=== PATIENT | female | born 1970 | race Caucasian/White ===

== ENCOUNTER 2022-12-20 14:13 | Inpatient (IN) | payer OTHER, SELFPAY ==
[2022-12-20] VITALS (16 sets, daily range): BP systolic 115–140; BP diastolic 63–88; PULSE 62–88; RESP 11–20; TEMP 36–37.2; O2SAT 95–100; BMI 24.9
--- NOTE | ~2022-12-20 | CT_ITS ---
EXAMINATION: CT abdomen pelvis w con DATE: 12/20/2022 15:20 INDICATION: Epigastric pain TECHNIQUE: Computed tomography (CT) of the abdomen and pelvis was performed with 100 mL Omnipaque-350 intravenous contrast. Automated exposure control and iterative reconstruction technique were employe d. The dose-length product was 462.48 mGy-cm. COMPARISON: None. FINDINGS: Lower thorax: Scattered sub-6 mm pulmonary nodules. Small subsegmental focus of tree-in-bud opacities in the left lower lobe. Liver: Simple left lobe cyst.. Biliary/Gallbladder: Dilated gallbladder with mild inflammatory change, without sludge or stones 13 m m common bile duct, no obstructing mass or stone. Mild intrahepatic duct dilation. Pancreas: No duct dilation. Pancreatic enlargement. Moderate peripancreatic inflammatory change and f luid. Spleen: Normal. Adrenals:No mass. Kidneys: No hydronephrosis or obstructing calcification. Simple right upper pole cyst. 1.5 cm mildly lobulated 36 Hounsfield unit right midpole mass. Multiple sub-5 mm hypodensities, too small to charac terize but most likely represent cysts. GI tract: Moderate distal esophageal and gastric wall edema No small or large bowel dilation. Normal appendix. Diverticulosis without diverticulitis. Mesentery/Peritoneum: No ascites, mass, or free air. Retroperitoneum: No mass. Pelvis: Pelvic organs are within normal limits. Soft Tissues: Soft tissues and body wall unremarkable. Bones: No acute osseous finding. Sorry, that was close to be a thumbs up IMPRESSION: Acute uncomplicated pancreatitis. Moderate esophagitis/gastritis. Gallbladder hydrops and intra-/extra-axial hepatic bile duct dilation, presumably related to inflamma tion from gastritis. 1.5 cm indeterminate right midpole solid or complicated cystic renal lesion, recommend outpatient MRI or CT without and with contrast for further evaluation. Reviewed, dictated and finalized at location K. IMPRESSION: Acute uncomplicated pancreatitis. Moderate esophagitis/gastritis. Gallbladder hydrops and intra-/extra-axial hepatic bile duct dilation, presumab ly related to inflammation from gastritis. 1.5 cm indeterminate right midpole solid or complicated cystic renal lesion, re commend outpatient MRI or CT without and with contrast for further evaluation.
--- NOTE | ~2022-12-20 | MR_ITS ---
EXAMINATION: MR MRCP wo/w con/w 3D wo ind DATE: 12/21/2022 07:56 INDICATION: Abnormal liver function tests. Pancreatitis. Abdominal pain. TECHNIQUE: Magnetic resonance imaging (MRI) of the abdomen was performed without and with 13 mL Multi Austin intravenous contrast. Sequences included coronal T2-weighted FS FSE, coronal T2-weighted FSE, a xial T1-weighted LAVA, coronal FS FIESTA, axial dual-echo T1-weighted SPGR, coronal lava-FLEX, sagitt al T2-weighted FSE, axial T2-weighted FSE, and axial DWI. Thick-slab T2-weighted FSE images were obta ined for magnetic resonance cholangiopancreatography (MRCP). Maximum intensity projection 3-D reconst ructions of the volumetric data were created by the technologist. Postcontrast sequences included cor onal LAVA-flex and time course of axial T1-weighted LAVA. COMPARISON: CT abdomen and pelvis 12/20/2022 FINDINGS: ABDOMEN MRI: There is diffuse hepatic steatosis. There is a 19 mm cyst in the liver. The spleen is no rmal. The gallbladder is distended and contains gallstones. There is edema in the abdomen centered at the pancreas, consistent with acute interstitial pancreatitis. The pancreas enhances throughout. The adrenal glands and left kidney are normal. There are cysts in right kidney measuring up to 15 mm. Th ere are no dilated loops of bowel. There is a small volume of ascites. ABDOMEN MRCP: The common duct is dilated to 10 mm. There are 2 stones in the common duct with the lar bassam measuring 3 mm . IMPRESSION: 1. Acute interstitial pancreatitis. 2. Small volume of ascites. 3. Mildly dilated common duct with choledocholithiasis. 4. Distended gallbladder with cholelithiasis. 5. Diffuse hepatic steatosis. Reviewed, dictated and finalized at location A.
--- NOTE | ~2022-12-20 | US_ITS ---
EXAMINATION: US transvaginal DATE: 12/21/2022 08:40 INDICATION: Abdominal pain. Left ovarian mass. TECHNIQUE: Multiple transvaginal sonographic images of the pelvis were obtained. COMPARISON: CT abdomen and pelvis 12/20/2022 FINDINGS: The uterus measures 5.2 x 4.4 x 2.9 cm. There is physiologic free fluid in the pelvis. The endometria l complex is normal in thickness, but not well visualized. The ovaries are not visualized. IMPRESSION: 1. Ovaries not visualized. Note that the CT demonstrates a 4.4 x 3.2 cm mass of the left ovary contai jovan fat, consistent with a dermoid. Reviewed, dictated and finalized at location A. IMPRESSION: 1. Ovaries not visualized. Note that the CT demonstrates a 4.4 x 3.2 cm mass of the left ovary containing fat, consistent with a dermoid.
--- NOTE | ~2022-12-20 | XR_ITS ---
EXAMINATION: XR ERCP DATE: 12/23/2022 14:07 INDICATION: Gallstones TECHNIQUE: 4 fluoroscopic images of the right upper quadrant were obtained during endoscopic retrogra de cholangiopancreatography (ERCP) performed by Dr. Pierre. Radiologist was not present for the imagi ng or procedure. The amount of fluoroscopy time used during this procedure was 3.1 minutes. COMPARISON: MRCP dated 12/31/2022 FINDINGS: Images demonstrate endoscopic cannulation and retrograde contrast injection into the common bile duct . The common bile duct appears mildly dilated measuring approximately 9 mm in maximal diameter. No de finitive endoluminal filling defects to suggest choledocholithiasis. There is also contrast extends a long the main pancreatic duct at the head and proximal body the pancreas which measures up to 3 mm in maximal diameter with no endoluminal filling defects. IMPRESSION: 1. Mild dilation of the common bile duct without evident choledocholithiasis. Please refer to the ERC P procedure note for additional details. Reviewed, dictated and finalized at location A. IMPRESSION: 1. Mild dilation of the common bile duct without evident choledocholithiasis. P lease refer to the ERCP procedure note for additional details.
--- NOTE | 2022-12-20 14:12 | ED.ABDPAIN ---
HPI - Abdominal Pain General Chief Complaint: Abdominal Pain Stated Complaint: abd pain Source: patient, family and EMS Mode of arrival: EMS Limitations: clinical condition History of Present Illness HPI narrative: 57 years old white female came from home by ambulance with sudden onset of severe right upper quadrant epigastric pain started within 1 hour prior to arrival to the emergency room. Associated with diaphoresis and intermittent blacking out. Possible history of GERD, depression. Patient does not smoke cigarettes and uses marijuana daily. No alcohol. History of hysterectomy. Review of Systems Review of Systems: All systems reviewed & are unremarkable except as noted in HPI and below Exam Narrative: General appearance: Well-developed, well-nourished Skin: Normal color Head: Normocephalic, nontraumatic Eyes: Clear conjunctiva ENT: Oropharynx normal, ears normal, nose normal Neck: Supple, nontender Chest and respiratory: Airway patent, no respiratory distress, no accessory muscle use Heart: Regular rate/rhythm Abdomen: Severe diffuse tenderness of the epigastric and right upper quadrant area, positive guarding. Quiet bowel sounds Vascular: Normal peripheral pulses, normal capillary refill. Musculoskeletal: Normal range of motion, nontender back Neurologic: Alert and oriented ?3, INJECTION MOLDING SUPERVISOR is normal as tested, no gross motor deficit Course Reevaluation(s) Reevaluation #1: Patient feeling much better after Dilaudid and Zofran IV. Date: 12/20/22 Time: 16:27 Consultations Consultation #1: DR MARIEE Date: 12/20/22 Time: 16:03 Consultation #2: Dr. Brothers Date: 12/20/22 Time: 16:17 Vital Signs Vital signs: Vital Signs Temperature 37.0 C 12/20/22 14:06 Pulse Rate 82 12/20/22 14:06 Respiratory Rate 16 12/20/22 14:06 Blood Pressure 132/76 12/20/22 14:06 Pulse Oximetry 99 12/20/22 14:06 Temperature 37.0 C 12/20/22 14:06 Pulse Rate 78 12/20/22 16:15 Respiratory Rate 16 12/20/22 16:15 Blood Pressure 140/74 12/20/22 16:15 Pulse Oximetry 99 12/20/22 16:15 MDM - Abdominal Pain MDM Narrative Medical decision making narrative: 52 years old white female came to the emergency room by ambulance with severe epigastric and right upper quadrant pain, Physical examination was consistent with severe tenderness epigastric and right upper quadrant, differential diagnosis perforated peptic ulcer disease, pancreatitis, cholecystitis, gastritis. Work-up today showed WBC of 11.0 with left shift, lactic acid 2.7, AST 163, ALT 151, lipase 40,000, bilirubin within normal limits at 0.9. CT scan of the abdomen and pelvis showed acute pancreatitis, moderate esophagitis/gastritis, gallbladder hydrops and intra/extra hepatic bile duct dilatation. Dilated gallbladder with mild inflammatory change, without sludge or stones 13 mm common bile duct, no obstructing mass or stone. Mild intrahepatic ductal dilatation. Acute pancreatitis secondary to gallbladder pathology is my concern. Dr. Mariee was consulted, Dr. Brothers was consulted. Patient to be admitted to med/surgery. Patient received 1 L of normal saline, Dilaudid, Zofran, pantoprazole, Zosyn prior to admission. Differential Diagnosis Differential diagnosis: Likely gastroenteritis, pancreatitis and other (Cholecystitis) Medical Records Attestation: I reviewed the patient's medical records. Lab Data Attestation: I reviewed the patient's lab results. 12/20/22 14:28 12/20/22 14:28 Labs: Lab Results 12/20/22 Range/Units 14:28 WBC 11.0 H (4.5-10.0) K/mm3 RBC 4.71 (4.2-5.4) M/mm3 Hgb 13.9 (12.0-15.0) g/dL Hct 42.6 (37.0-47.0) % [facility]
[2022-12-20] MEDS: PANTOPRAZOLE SODIUM IV 40 MG VIAL IV PUSH (14:32)
[2022-12-20] MEDS: HYDROmorphone HCL INJ (*CRX) 1 MG/ML SYR 0.5 MG IV PUSH ×2 (14:32→18:23)
[2022-12-20] MEDS: SODIUM CHLORIDE 0.9% IV 1,000 ML 999 ML IV CONT (14:34)
[2022-12-20] MEDS: ONDANSETRON INJ 4 MG/2 ML VIAL IV PUSH (14:35)
[2022-12-20 14:37] LABS: Basophils Percent Auto 0.4 % (0.2-1.2); Eosinophils Absolute Auto 0.1 K/mm3 (0-0.3); Eosinophils Percent Auto 0.6 % (0-4.4); Hematocrit 42.6 % (37.0-47.0); Hemoglobin 13.9 g/dL (12.0-15.0); Immature Granulocyte Absolute 0.05 K/mm3 (0.00-0.031); Immature Granulocyte Percent A 0.5 % (0-0.5); Lymphocytes Absolute Auto 2.05 K/mm3 (0.9-3.2); Lymphocytes Percent Auto 18.6 % (18.3-44.2); Mean Corpuscular HGB Conc 32.6 g/dl (32-36); Mean Corpuscular Hemoglobin 29.5 pg (26-34); Mean Corpuscular Volume 90.4 fl (80-100); Mean Platelet Volume 10.6 fl (7.4-10.4); Monocytes Absolute Auto 0.7 K/mm3 (0.1-0.6); Monocytes Percent Auto 6.4 % (2.6-8.5); Neutrophils Absolute Auto 8.1 K/mm3 (1.3-6.7); Neutrophils Percent Auto 73.5 % (45.5-73.1); Platelet Count Result 270 k/mm3 (150-375); Red Blood Count 4.71 M/mm3 (4.2-5.4); Red Cell Distribution Width 12.1 % (11.5-14.5)
[2022-12-20 14:47] LABS: Appearance Urine Clear (Clear); Bacteria Urine None Seen /hpf; Bilirubin Urine Negative (Negative); Blood Urine 1+ (Negative); Color Urine Yellow (Yellow); Glucose Urine UA Negative (Negative); Ketones Urine Negative (Negative); Leukocyte Esterase Ur Negative LEU/UL (Negative); Nitrate Urine Negative (Negative); Non Pathogenic Casts 0-2; Protein Urine Trace mg/dL (Negative); Specific Grav Ur 1.014 (1.001-1.035); Squamous Epithelial Cell Urine None seen /hpf (Few); WBC Urine 0-5 /hpf; pH Urine 7.5 (5.0-9.0)
[2022-12-20 14:49] LABS: Lactic Acid Reflex 2.7 mmol/L (0.7-2.0)
[2022-12-20 14:52] LABS: Add Urine Microscopic? YES
[2022-12-20 15:03] LABS: Alanine Aminotransferase 131 U/L (6-35); Albumin Level 4.4 g/dL (3.5-5.1); Alkaline Phosphatase 104 U/L (38-126); Anion Gap 8 mmol/L (8-16); Aspartate Amino Transferase 163 U/L (14-36); Bilirubin,Total 0.9 mg/dL (0.2-1.3); Blood Urea Nitrogen 25 mg/dL (7-17); Calcium 9.2 mg/dL (8.4-10.2); Carbon Dioxide 27 mmol/L (22-30); Chloride 104 mmol/L (98-107); Estimated CRCL calculation 89 ml/min; Estimated Glomerular Filt Rate > 60; Glucose 141 mg/dL (65-110); Sodium 139 mmol/L (137-145)
[2022-12-20 15:46] LABS: Lipase > 40000 U/L (23-300)
[2022-12-20] MEDS: PIPERACILLN/TAZ 3.375GM/NS50ML 3.375 GM/50 ML BAG IVPB ×2 (16:52→23:30)
[2022-12-20] MEDS: SODIUM CHLORIDE 0.9% IV 1,000 ML 500 ML IV CONT (16:52)
[2022-12-20 17:34] LABS: Reflex Lactic Acid Yes or No Add Lactic
--- NOTE | 2022-12-20 18:07 | ADMGEN ---
This patient, Consuelo Harrington, was admitted to Medical Room 250-. Patient/family oriented to hospital policies and general routines including ID bracelet, bed and alarms, visiting hours, pain management, procedures, bathroom and other care routines, personal items, smoking policy, room service/diet, and visiting hours. Information on how to activate the Rapid Response Team has been discussed. Patient/Family are encouraged to report perceived risks to care and to ask questions if they do not understand what they are told or what they should do.
[2022-12-20] MEDS: LACTATED RINGERS 1,000 ML 250 ML IV CONT ×2 (18:25→23:30)
[2022-12-20 18:34] LABS: Lactic Acid 1.4 mmol/L (0.7-2.0)
--- NOTE | 2022-12-20 20:13 | PM.IMHP ---
H&P: HPI History of Present Illness Date/Time: 12/20/22 20:13 Chief Complaint: Abdominal pain Narrative: This is a 52-year-old female patient who came via ambulance to the emergency room from home. The patient was complaining of severe right upper quadrant epigastric pain. The pain started 1 hour prior to arrival to the emergency room. The patient stated that she has severe pain that she became diaphoretic and had intermittent spells where she passed out. The patient denies any alcohol abuse. The patient stated that she has not had any prior episodes like this. Her white count is 11.0. Her lactic was 2.7 and is now 1.4. Glucose 141. AST is 163 and ALT is 131. AST is 163 and ALT is 131. Lipase is greater than 40,000. The patient had a CT of the abdomen?Dilated gallbladder with mild inflammatory change, without sludge or stones 13 mm common bile duct, no obstructing mass or stone. Mild intrahepatic duct dilation.cute uncomplicated pancreatitis. Moderate esophagitis/gastritis. Gallbladder hydrops and intra-/extra-axial hepatic bile duct dilation, presumably related to inflammation from gastritis. 1.5 cm indeterminate right midpole solid or complicated cystic renal lesion, recommend outpatient MRI or CT without and with contrast for further evaluation. Surgery and GI have been consulted. The patient was given Dilaudid, Protonix, IV fluids, Zosyn, and Toradol. The patient is really around in pain at times to the right upper quadrant. The patient is being admitted to inpatient status on the date of service of 12/20/2022 Review of Systems Review of Systems: All systems reviewed & are unremarkable except as noted in HPI and below Constitutional: Constitutional: Reports as per HPI and Reports no additional constitutional complaints Eyes: Eyes: Reports as per HPI and Reports no additional eye complaints ENT: Reports system reviewed and no additional complaints, except as documented and Reports Normal hearing present Cardiovascular: Cardiovascular: Reports no additional cardiovascular complaints Respiratory: Respiratory: Reports no additional respiratory complaints and Reports no additional respiratory complaints Gastrointestinal: Gastrointestinal: Reports as per HPI and Reports no additional gastrointestinal complaints Musculoskeletal: Musculoskeletal: Reports no additional musculoskeletal complaints Integumentary/Breasts: Skin/Breast: Reports system reviewed and no additional complaints, except as docu and Reports as per HPI Neurologic: Reports system reviewed and no additional complaints, except as documented, Reports as per HPI and Reports Normal hearing present Psychiatric: Psychiatric: Reports no additional psychiatric complaints and Reports as per HPI Endocrine: Endocrine: Reports no additional endocrine complaints Hematologic/Lymphatic: Hematologic/Lymphatic: Reports no additional hematologic/lymphatic complaints Allergic/Immunologic: Allergic/Immunologic: Reports no additional allergic/immunologic complaints [facility] Surgical History Surgical History (Updated 12/20/22 @ 23:03 by Bindu Parrish NP) H/O tubal ligation Family History Family History (Updated 12/20/22 @ 23:04 by Bindu Parrish NP) Other Alcoholism Drug addiction Social History Social History (Updated 12/20/22 @ 23:04 by Bindu Parrish NP) Social History: The patient lives with her and she has 3 daughters and 1 daughter. She is not currently working. She denies alk 0 marijuana illicit drugs. the patient does occasionally smoke a cigarette. Code status full code Years smoked: 15 Smoking status: Current some day smoker Alcohol intake: former Substance use: never Lack of Transportation: No Lack of Food: Never True Current Housing: I Have Housing Concerned About Future Housing: No Difficulty Paying Gas/Electric Bills: No Difficulty Paying for Meds: No Currently Unemployed: No Education: Associate D
[2022-12-20] MEDS: KETOROLAC 15 MG/ML VIAL (*BKC) IV PUSH (21:44)
[2022-12-21] VITALS (7 sets, daily range): BP systolic 108–124; BP diastolic 59–79; PULSE 75–88; RESP 16–20; TEMP 35.7–37.4; O2SAT 99–100
[2022-12-21] MEDS: LACTATED RINGERS 1,000 ML 250 ML IV CONT ×3 (03:36→19:49)
[2022-12-21] MEDS: KETOROLAC 15 MG/ML VIAL (*BKC) IV PUSH ×3 (06:01→20:27)
[2022-12-21] MEDS: PIPERACILLN/TAZ 3.375GM/NS50ML 3.375 GM/50 ML BAG IVPB ×3 (06:01→17:33)
[2022-12-21 06:05] LABS: Basophils Percent Auto 0.2 % (0.2-1.2); Eosinophils Absolute Auto 0.1 K/mm3 (0-0.3); Eosinophils Percent Auto 0.7 % (0-4.4); Hematocrit 36.8 % (37.0-47.0); Hemoglobin 11.9 g/dL (12.0-15.0); Immature Granulocyte Absolute 0.03 K/mm3 (0.00-0.031); Immature Granulocyte Percent A 0.3 % (0-0.5); Lymphocytes Absolute Auto 2.06 K/mm3 (0.9-3.2); Lymphocytes Percent Auto 21.9 % (18.3-44.2); Mean Corpuscular HGB Conc 32.3 g/dl (32-36); Mean Corpuscular Hemoglobin 29.4 pg (26-34); Mean Corpuscular Volume 90.9 fl (80-100); Mean Platelet Volume 10.4 fl (7.4-10.4); Monocytes Absolute Auto 0.6 K/mm3 (0.1-0.6); Monocytes Percent Auto 6.3 % (2.6-8.5); Neutrophils Absolute Auto 6.6 K/mm3 (1.3-6.7); Neutrophils Percent Auto 70.6 % (45.5-73.1); Platelet Count Result 211 k/mm3 (150-375); Red Blood Count 4.05 M/mm3 (4.2-5.4); Red Cell Distribution Width 12.4 % (11.5-14.5); White Blood Count 9.4 K/mm3 (4.5-10.0)
[2022-12-21] MEDS: PANTOPRAZOLE SODIUM IV 40 MG VIAL IV PUSH (08:17)
--- NOTE | 2022-12-21 10:05 | PM.CNGS ---
Assessment and Plan Assessment and plan (1) Biliary acute pancreatitis: Code(s): K85.10 - Biliary acute pancreatitis without necrosis or infection Status: Acute Assessment and Plan: feels a little better today, cont bowel rest, serial exams/labs, will likely need ERCP given CBD stones (2) Cholelithiasis with choledocholithiasis: Code(s): K80.70 - Calculus of gallbladder and bile duct without cholecystitis without obstruction Status: Acute Assessment and Plan: see above, will need interval cholecystectomy in the future History of Present Illness Consult details Consult date: 12/21/22 Reason for consult: abdominal pain Requesting physician: Elliot Schwartz MD Narrative: The patient is a 52-year-old female presenting to the emergency department complaining of severe right upper quadrant, epigastric abdominal pain. The patient reports the pain was severe and unrelenting, causing her to pass out multiple times. The patient does describe some anorexia, bloating, reflux, nausea. The patient reports a past history of reflux and indigestion, however nothing this severe. Workup in the emergency department, including imaging, was significant for pancreatitis. Review of Systems Constitutional: Constitutional: Reports as per HPI, Reports anorexia, Denies chills, Denies fatigue, Denies increased appetite, Denies lethargy, Reports malaise, Reports poor appetite, Denies weakness, Denies weight gain and Denies weight loss Eyes: Eyes: Reports no additional eye complaints ENT: Reports system reviewed and no additional complaints, except as documented Cardiovascular: Cardiovascular: Reports no additional cardiovascular complaints Respiratory: Respiratory: Reports no additional respiratory complaints Gastrointestinal: Gastrointestinal: Reports as per HPI, Reports abdominal pain, Reports bloating, Reports GI cramping, Reports early satiety, Reports heartburn, Denies diarrhea, Denies loose stools, Reports nausea and Denies vomiting Genitourinary: Genitourinary: Reports no additional female genitourinary complaints Musculoskeletal: Musculoskeletal: Reports no additional musculoskeletal complaints Integumentary/Breasts: Skin/Breast: Reports system reviewed and no additional complaints, except as docu Neurologic: Reports system reviewed and no additional complaints, except as documented Psychiatric: Psychiatric: Reports no additional psychiatric complaints Endocrine: Endocrine: Reports no additional endocrine complaints Hematologic/Lymphatic: Hematologic/Lymphatic: Reports no additional hematologic/lymphatic complaints Allergic/Immunologic: Allergic/Immunologic: Reports no additional allergic/immunologic complaints [facility] Surgical History Surgical History H/O tubal ligation Family History Family History Other Alcoholism Drug addiction Social History Social History Social History: The patient lives with her and she has 3 daughters and 1 daughter. She is not currently working. She denies alk 0 marijuana illicit drugs. the patient does occasionally smoke a cigarette. Code status full code Years smoked: 15 Smoking status: Current some day smoker Alcohol intake: former Substance use: never Lack of Transportation: No Lack of Food: Never True Current Housing: I Have Housing Concerned About Future Housing: No Difficulty Paying Gas/Electric Bills: No Difficulty Paying for Meds: No Currently Unemployed: No Education: Associate Degree Difficulty w/ Childcare or Family Care: No Spiritual care concerns: No Comments no medical history Meds Home Medications and Allergies Allergies Allergy/AdvReac Type Severity Reaction Status Date / Time No Known Allergies Allergy Verified 12/20/22 16:32 Vital S
--- NOTE | 2022-12-21 10:08 | WPDGICN ---
Assessment and Plan Assessment and plan (1) Cholelithiasis with choledocholithiasis: Code(s): K80.70 - Calculus of gallbladder and bile duct without cholecystitis without obstruction Status: Acute Assessment and Plan: Patient with apparent gallstones and choledocholithiasis by MRCP. This appears be the etiology for acute pancreatitis. Plan for bowel rest patient should be NPO for now. Pain control is advised. An ERCP will be anticipated early next week after pancreatitis has subsided some. surgery will follow along with us because of apparent hydrops of gallbladder. This may necessitate surgery depending on how this changes. Otherwise surgery typically would be performed after ERCP is accomplished. (2) Acute pancreatitis: Qualifiers: Acute pancreatitis complication: unspecified Pancreatitis type: unspecified pancreatitis type Qualified Code(s): K85.90 - Acute pancreatitis without necrosis or infection, unspecified Code(s): K85.90 - Acute pancreatitis without necrosis or infection, unspecified Status: Acute Assessment and Plan: Patient with apparent acute pancreatitis. Appears to be on the bed at basis of gallstones. Plan for supportive care in p.o. and pain control for now. GI Consult Note Consult date/time: 12/21/22 10:08 Reason for consult: Pancreatitis HPI: Consuelo Harrington is a 52 year old female I am asked to see at the request of the hospitalist service because of pancreatitis. Patient reports a longstanding history of heartburn and acid indigestion. She typically gets resolution with [id number] antacids. Yesterday about noon she awoke with mid epigastric pain that is diffuse large amount of pressure. Associated nausea but no emesis. She denies any back pain. This persisted prompting her to go to the emergency room. In the emergency room CT scan imaging revealed pancreatitis and possible associated gastritis. patient was felt to have a distended gallbladder consistent with gallbladder hydrops. For this reason I have been consulted. Subsequent MRCP suggested possible common bile duct gallstones as well as cholelithiasis. Patient has never previously known to have gallstones. Her family history is noncontributory. Patient denies any weight loss. She denies any jaundice. She states symptoms appear to worsen after eating a meal. Review of Systems Review of Systems: Review of systems noncontributory. [facility] Surgical History Surgical History H/O tubal ligation Family History Family History Other Alcoholism Drug addiction Social History Social History Social History: The patient lives with her and she has 3 daughters and 1 daughter. She is not currently working. She denies alk 0 marijuana illicit drugs. the patient does occasionally smoke a cigarette. Code status full code Years smoked: 15 Smoking status: Current some day smoker Alcohol intake: former Substance use: never Lack of Transportation: No Lack of Food: Never True Current Housing: I Have Housing Concerned About Future Housing: No Difficulty Paying Gas/Electric Bills: No Difficulty Paying for Meds: No Currently Unemployed: No Education: Associate Degree Difficulty w/ Childcare or Family Care: No Spiritual care concerns: No Meds Home Medications and Allergies Allergies Allergy/AdvReac Type Severity Reaction Status Date / Time No Known Allergies Allergy Verified 12/20/22 16:32 Vital Signs Vital Signs - 24 hr 12/20/22 14:06 12/20/22 16:15 12/20/22 14:38 Temperature 98.6 F Pulse Rate 82 78 66 Respiratory Rate 16 16 11 L Blood Pressure 132/76 140/74 Pulse Oximetry 99 99 97 Oxygen Delivery Fraction of Inspired Oxygen 12/20/22 14:45 12/20/22 1
[2022-12-21 11:19] LABS: Anion Gap 2 mmol/L (8-16); Blood Urea Nitrogen 19 mg/dL (7-17); Calcium 8.2 mg/dL (8.4-10.2); Carbon Dioxide 26 mmol/L (22-30); Chloride 104 mmol/L (98-107); Estimated CRCL calculation 105 ml/min; Estimated Glomerular Filt Rate > 60; Glucose 90 mg/dL (65-110); Magnesium 1.7 mg/dL (1.6-2.3); Potassium 3.9 mmol/L (3.4-5.0); Sodium 132 mmol/L (137-145)
[2022-12-21 11:46] LABS: Lipase 7012 U/L (23-300)
--- NOTE | 2022-12-21 13:11 | PM.IMPN ---
Progress Note: A&P Assessment and Plan (1) Biliary acute pancreatitis: Qualifiers: Acute pancreatitis complication: unspecified Qualified Code(s): K85.10 - Biliary acute pancreatitis without necrosis or infection Code(s): K85.10 - Biliary acute pancreatitis without necrosis or infection Status: Acute Assessment and Plan: Initial lipase >40,000. After fluids and bowel rest lipase just over 7000. Continue IV pain medications (ketorolac and Dilaudid), continue NPO status overnight allowing a few ice chips/mouth swabs, continue IV hydration. Plan to advance diet as tolerated tomorrow. (2) Cholelithiasis with choledocholithiasis: Code(s): K80.70 - Calculus of gallbladder and bile duct without cholecystitis without obstruction Status: Acute Assessment and Plan: MRCP shows 2 gallstones obstructing common bile duct. GI plans to do ERCP after initial inflammation improved. Patient will likely need cholecystectomy in follow up to prevent recurrence as stones are noted in gallbladder as well. (3) Dermoid cyst of left ovary: Code(s): D27.1 - Benign neoplasm of left ovary Status: Acute Assessment and Plan: Incidental finding of dermoid cyst on left ovary on CT and further evaluated on transvaginal ultrasound. No pain at this time. No abnormal vaginal bleeding. Plan Bowel rest, IV fluids, pain control, ADAT in 1-2 days, ERCP Time Spent With Patient Time with patient: 25 - 35 minutes Subjective Date/time seen: 12/21/22 10:00 Interval history: Patient admitted for acute pancreatitis, currently NPO with IV fluids infusing. General Surgery and Gastroenterology have seen patient. Patient to undergo MRCP today. 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 Patient reports that when she woke up yesterday had sudden mid upper abdominal worse when taking a deep breath or eating. Eventually the pain was bad enough to send her to the emergency department. Patient reports chronic abdominal pain but this was new and worse she has ever experienced. Patient reports good pain relief with ketorolac, less pain relief when given Dilaudid. Patient denies alcohol use, denies history of pancreatitis, denies history of diabetes. Patient states no shortness of breath, no chest pain, no vomiting, no fever, no chills, no diarrhea. She reports she had some initial nausea but was unable to make herself vomit. Review of Systems Review of Systems: All systems reviewed & are unremarkable except as noted in HPI and below Exam Narrative: GENERAL: Generally well appearing, alert and oriented, in mild pain distress. She is pleasant and conversant in full sentences. HEENT: Pupils are equally round and briskly reactive to light. Extraocular muscles are intact. Oral mucous membranes are moist without lesions. NECK: The patient has no noted JVD. No adenopathy is appreciated. CHEST/LUNGS: Lungs are clear bilaterally without rhonchi, rales, or wheezes. There is no subcutaneous air appreciated. There is no tenderness to the chest wall. HEART: The patient has a regular rate and rhythm. No murmurs, rubs, or gallops are appreciated. Distal pulses are 2+. ABDOMEN: The patient?s abdomen is soft, nondistended. There is epigastric tenderness to palpation with mild guarding. No other tenderness noted. Specifically no left lower quadrant tenderness. EXTREMITIES: The patient has no peripheral edema. There is no focal long bone tenderness or deformity. SKIN: The patient?s skin is warm and dry, without rashes or lesions. PSYCHIATRIC: The patient has normal mental status and has an appropriate affect. NEUROLOGIC: There are no gross deficits to the cranial nerves. Patient ambulates with steady gait. Objective Data Vital Signs Vital Signs: Vital Signs - 24 hr 12/20/22 14:06 12/20/22 16:15 12/20/22 14:38 Temperature 37.0 C Pulse Rate 82 78 66 Respiratory Rate 16 16 11
[2022-12-22] VITALS (7 sets, daily range): BP systolic 106–123; BP diastolic 57–81; PULSE 71–82; RESP 17–18; TEMP 36.4–36.6; O2SAT 97–100
[2022-12-22] MEDS: PIPERACILLN/TAZ 3.375GM/NS50ML 3.375 GM/50 ML BAG IVPB ×4 (00:57→18:18)
[2022-12-22] MEDS: LACTATED RINGERS 1,000 ML 250 ML IV CONT ×5 (01:13→22:44)
[2022-12-22 05:11] LABS: Basophils Percent Auto 0.3 % (0.2-1.2); Eosinophils Absolute Auto 0.1 K/mm3 (0-0.3); Eosinophils Percent Auto 2.1 % (0-4.4); Hematocrit 33.1 % (37.0-47.0); Hemoglobin 10.7 g/dL (12.0-15.0); Immature Granulocyte Absolute 0.02 K/mm3 (0.00-0.031); Immature Granulocyte Percent A 0.3 % (0-0.5); Lymphocytes Absolute Auto 2.04 K/mm3 (0.9-3.2); Lymphocytes Percent Auto 30.2 % (18.3-44.2); Mean Corpuscular HGB Conc 32.3 g/dl (32-36); Mean Corpuscular Hemoglobin 29.2 pg (26-34); Mean Corpuscular Volume 90.2 fl (80-100); Mean Platelet Volume 10.3 fl (7.4-10.4); Monocytes Absolute Auto 0.5 K/mm3 (0.1-0.6); Neutrophils Absolute Auto 4.1 K/mm3 (1.3-6.7); Neutrophils Percent Auto 60.1 % (45.5-73.1); Platelet Count Result 174 k/mm3 (150-375); Red Blood Count 3.67 M/mm3 (4.2-5.4); Red Cell Distribution Width 11.9 % (11.5-14.5); White Blood Count 6.8 K/mm3 (4.5-10.0)
[2022-12-22 05:26] LABS: Alanine Aminotransferase 55 U/L (6-35); Alkaline Phosphatase 74 U/L (38-126); Anion Gap 3 mmol/L (8-16); Aspartate Amino Transferase 28 U/L (14-36); Bilirubin,Total 0.5 mg/dL (0.2-1.3); Blood Urea Nitrogen 15 mg/dL (7-17); Calcium 8.1 mg/dL (8.4-10.2); Carbon Dioxide 28 mmol/L (22-30); Chloride 105 mmol/L (98-107); Estimated CRCL calculation 89 ml/min; Estimated Glomerular Filt Rate > 60; Glucose 72 mg/dL (65-110); Potassium 3.7 mmol/L (3.4-5.0); Sodium 136 mmol/L (137-145)
[2022-12-22 05:32] LABS: Lipase 1918 U/L (23-300)
[2022-12-22] MEDS: PANTOPRAZOLE SODIUM IV 40 MG VIAL IV PUSH (08:04)
--- NOTE | 2022-12-22 08:55 | WPDGIPROGNO ---
Progress Note: A&P Assessment and Plan (1) Acute pancreatitis: Qualifiers: Acute pancreatitis complication: unspecified Pancreatitis type: unspecified pancreatitis type Qualified Code(s): K85.90 - Acute pancreatitis without necrosis or infection, unspecified Code(s): K85.90 - Acute pancreatitis without necrosis or infection, unspecified Status: Acute Assessment and Plan: patient with gallstone pancreatitis. Lipase is decreasing but remains elevated. Plan to continue supportive care. Keep patient NPO for now. IV fluid and bowel rest. Anticipate ERCP tomorrow given the finding of gallstones and suspected common bile duct gallstones on imaging studies. (2) Cholelithiasis with choledocholithiasis: Code(s): K80.70 - Calculus of gallbladder and bile duct without cholecystitis without obstruction Status: Acute Assessment and Plan: MRCP suggests common bile duct gallstones in addition to cholelithiasis. This appears be the etiology for pancreatitis. Plan for ERCP on Thursday. Ultimately she will require cholecystectomy. Surgery following patient. Subjective Date/time seen: 12/22/22 08:55 Interval history: Patient alert and comfortable this morning. She states pain is subsided. Review of Systems Review of Systems: Review of systems noncontributory. Exam Narrative: Physical exam reveals patient be alert. She is afebrile and anicteric. Lungs are clear to auscultation and percussion. Heart is without murmur or extra sounds. Abdomen bowel sounds are present soft nontender with no organomegaly. Objective Data Vital Signs Vital Signs: Vital Signs - 24 hr 12/21/22 10:20 12/21/22 13:40 12/21/22 18:00 Temperature 97.7 F 96.3 F L 96.7 F L Pulse Rate 80 75 80 Respiratory Rate 16 20 16 Blood Pressure 114/67 120/76 124/79 Pulse Oximetry 100 100 99 Oxygen Delivery 12/21/22 19:21 12/21/22 20:00 12/21/22 23:35 Temperature 98.4 F 99.4 F Pulse Rate 75 76 84 Respiratory Rate 16 18 16 Blood Pressure 109/77 111/73 Pulse Oximetry 100 99 100 Oxygen Delivery Room Air 12/22/22 04:00 12/22/22 08:21 Temperature 97.7 F Pulse Rate 82 Respiratory Rate 18 Blood Pressure 119/62 Pulse Oximetry 98 98 Oxygen Delivery Room Air Intake/Output Intake/Output: Intake & Output 12/19/22 12/20/22 12/21/22 12/22/22 23:59 23:59 23:59 23:59 Intake Total 1000 4200 1050 Balance 1000 4200 1050 Meds/Results Medications: Active Medications Generic Name Dose Route Start Last Admin Trade Name Freq PRN Reason Stop Dose Admin Hydromorphone HCl 0.5 mg 12/20/22 16:18 12/20/22 18:23 Hydromorphone Hcl Inj (*Crx) 1 Mg/Ml Syr IV PUSH 0.5 mg Q4H PRN Administration Pain Rated 7-10 Piperacillin/Tazobactam/Dextrose 3.375 gm in 50 mls @ 100 mls/hr 12/20/22 23:00 12/22/22 06:06 Zosyn 3.375 Gm/Ns 50 Ml IVPB 100 mls/hr Q6HR GIOVANY Administration Lactated Ringer's 1,000 mls @ 250 mls/hr 12/20/22 16:20 12/22/22 06:05 Lr - Lactated Ringers Iv IV CONT 250 mls/hr .Q4H GIOVANY Administration Ketorolac Tromethamine 15 mg 12/21/22 14:46 12/21/22 20:27 Ketorolac 15 Mg/Ml Vial (*Bkc) IV PUSH 15 mg Q6H PRN Administration Pain Rated 4-6 Ondansetron HCl 4 mg 12/20/22 16:18 Ondansetron Inj 4 Mg/2 Ml Vial IV PUSH Q4H PRN Nausea Pantoprazole Sodium 40 mg 12/21/22 09:00 12/22/22 08:04 Pantoprazole Sodium Iv 40 Mg Vial IV PUSH 40 mg QAM GIOVANY Administration Radiology Results: ITS Impressions Abdomen/Pelvis CT 12/20/22 15:30 IMPRESSION: Acute uncomplicated pancreatitis. Moderate esophagitis/gastritis. Gallbladder hydrops and intra-/extra-axial hepatic bile duct dilation, presumably related to inflammation from gastritis. 1.5 cm indeterminate right midpole solid or complicated cystic renal lesion, recommend outpatient MRI or CT without and with contrast for further evaluation.
--- NOTE | 2022-12-22 09:02 | PM.IMPN ---
Progress Note: A&P Assessment and Plan (1) Biliary acute pancreatitis: Qualifiers: Acute pancreatitis complication: unspecified Qualified Code(s): K85.10 - Biliary acute pancreatitis without necrosis or infection Code(s): K85.10 - Biliary acute pancreatitis without necrosis or infection Status: Acute Assessment and Plan: Lipase improving with IV fluids and bowel rest. Patient unable to handle hunger pains in remain completely on bowel rest so she is taking small amounts of liquid diet. NPO after midnight plan for ERCP by GI Tomorrow. Possibly followed by cholecystectomy in a day or two with General surgery. (2) Cholelithiasis with choledocholithiasis: Code(s): K80.70 - Calculus of gallbladder and bile duct without cholecystitis without obstruction Status: Acute Assessment and Plan: See above (3) Dermoid cyst of left ovary: Code(s): D27.1 - Benign neoplasm of left ovary Status: Acute Assessment and Plan: Stable, no pain. Will have patient follow with TECHNICAL SUPPORT REPRESENTATIVE on discharge. (4) Hepatic steatosis: Code(s): K76.0 - Fatty (change of) liver, not elsewhere classified Status: Acute Assessment and Plan: Mild ALT elevation, normal AST and normal alk phos. Stable. Primary care follow up on discharge. Plan Continue IV fluids Pain management as needed NPO after midnight Either discharge after ERCP if patient to receive cholecystectomy as an outpatient or proceed with cholecystectomy then discharge Time Spent With Patient Time with patient: 25 - 35 minutes Subjective Date/time seen: 12/22/22 09:02 Interval history: This is a 52-year-old female patient admitted to the hospital for acute pancreatitis with findings of obstructing biliary stones plans for ERCP tomorrow. Lipase initially over 40,000 but this morning was just under 2000. Patient reports upper abdominal pain significantly improved, she only complains of generalized discomfort remaining in bed so long. Patient states that she is a busy body and just cannot stand being stuck in this bed. Patient also complaining of severe hunger pains. We discussed that gastroenterology would prefer patient continue bowel rest the patient stated she could not handle the hunger pains. Review of Systems Review of Systems: All systems reviewed & are unremarkable except as noted in HPI and below Exam Narrative: GENERAL: Generally well appearing, alert and oriented. She is pleasant and conversant in full sentences. HEENT: Pupils are equally round and briskly reactive to light. Extraocular muscles are intact. Oral mucous membranes are moist without lesions. NECK: The patient has no noted JVD. No adenopathy is appreciated. CHEST/LUNGS: Lungs are clear bilaterally without rhonchi, rales, or wheezes. There is no subcutaneous air appreciated. There is no tenderness to the chest wall. HEART: The patient has a regular rate and rhythm. No murmurs, rubs, or gallops are appreciated. Distal pulses are 2+. ABDOMEN: The patient?s abdomen is?soft, nondistended. There is no abdominal tenderness to palpation even epigastric or right upper quadrant. EXTREMITIES: The patient has no peripheral edema. There is no focal long bone tenderness or deformity. SKIN: The patient?s skin is warm and dry, without rashes or lesions. PSYCHIATRIC: The patient has normal mental status and has an appropriate affect. NEUROLOGIC:? There are no gross deficits to the cranial nerves.? Patient ambulates with steady gait. Objective Data Vital Signs Vital Signs: Vital Signs - 24 hr 12/21/22 10:20 12/21/22 13:40 12/21/22 18:00 Temperature 36.5 C 35.7 C L 35.9 C L Pulse Rate 80 75 80 Respiratory Rate 16 20 16 Blood Pressure 114/67 120/76 124/79 Pulse Oximetry 100 100 99 Oxygen Delivery 12/21/22 19:21 12/21/22 20:00 12/21/22 23:35 Temperature 36.9 C 37.4 C Pulse Rate 75 76 84 Respiratory Rate 16 18 16 Blood Pressure 109/77
--- NOTE | 2022-12-22 14:25 | PM.PNGS ---
Progress Note: A&P Assessment and Plan (1) Biliary acute pancreatitis: Qualifiers: Acute pancreatitis complication: unspecified Qualified Code(s): K85.10 - Biliary acute pancreatitis without necrosis or infection Code(s): K85.10 - Biliary acute pancreatitis without necrosis or infection Status: Acute Assessment and Plan: improving, exam largely benign, cont bowel rest, supportive mgmt, ERCP tomorrow (2) Cholelithiasis with choledocholithiasis: Code(s): K80.70 - Calculus of gallbladder and bile duct without cholecystitis without obstruction Status: Acute Assessment and Plan: ERCP tomorrow, d/w pt need for interval cholecystectomy Subjective Subjective Date/Time Seen: 12/22/22 14:25 Interval history: feels better, pain nearly resolved, hungry Review of Systems Review of Systems: All systems reviewed & are unremarkable except as noted in HPI and below Exam Const: General: cooperative, comfortable and no acute distress Resp: Auscultation: clear to auscultation bilaterally Cardio: Rate: regular rate Rhythm: regular rhythm GI: Inspection: normal to inspection and non-distended GI Palp: Yes abdominal tenderness, Yes Soft to palpation, Yes Tenderness to palpation present (GI), No Guarding due to palpation present (GI) and No Rigid due to palpation Other: mild TTP epigastrium Objective Data Vital Signs Vital Signs: Vital Signs - 24 hr 12/21/22 18:00 12/21/22 19:21 12/21/22 20:00 Temperature 35.9 C L 36.9 C Pulse Rate 80 75 76 Respiratory Rate 16 16 18 Blood Pressure 124/79 109/77 Pulse Oximetry 99 100 99 Oxygen Delivery Room Air 12/21/22 23:35 12/22/22 04:00 12/22/22 08:21 Temperature 37.4 C 36.5 C Pulse Rate 84 82 Respiratory Rate 16 18 Blood Pressure 111/73 119/62 Pulse Oximetry 100 98 98 Oxygen Delivery Room Air 12/22/22 08:00 12/22/22 08:00 12/22/22 12:00 Temperature 36.4 C 36.4 C Pulse Rate 80 82 Respiratory Rate 18 18 17 Blood Pressure 120/64 118/66 Pulse Oximetry 98 97 Oxygen Delivery Room Air Intake/Output Intake/Output: Intake & Output 12/19/22 12/20/22 12/21/22 12/22/22 23:59 23:59 23:59 23:59 Intake Total 1000 4200 2430 Balance 1000 4200 2430 Meds/Results Medications: Active Medications Generic Name Dose Route Start Last Admin Trade Name Freq PRN Reason Stop Dose Admin Hydromorphone HCl 0.5 mg 12/20/22 16:18 12/20/22 18:23 Hydromorphone Hcl Inj (*Crx) 1 Mg/Ml Syr IV PUSH 0.5 mg Q4H PRN Administration Pain Rated 7-10 Piperacillin/Tazobactam/Dextrose 3.375 gm in 50 mls @ 100 mls/hr 12/20/22 23:00 12/22/22 12:28 Zosyn 3.375 Gm/Ns 50 Ml IVPB 100 mls/hr Q6HR GIOVANY Administration Lactated Ringer's 1,000 mls @ 250 mls/hr 12/20/22 16:20 12/22/22 12:31 Lr - Lactated Ringers Iv IV CONT Infused .Q4H GIOVANY Infusion Ketorolac Tromethamine 15 mg 12/21/22 14:46 12/21/22 20:27 Ketorolac 15 Mg/Ml Vial (*Bkc) IV PUSH 15 mg Q6H PRN Administration Pain Rated 4-6 Ondansetron HCl 4 mg 12/20/22 16:18 Ondansetron Inj 4 Mg/2 Ml Vial IV PUSH Q4H PRN Nausea Pantoprazole Sodium 40 mg 12/21/22 09:00 12/22/22 08:04 Pantoprazole Sodium Iv 40 Mg Vial IV PUSH 40 mg QAM GIOVANY Administration Radiology Results: ITS Impressions Abdomen/Pelvis CT 12/20/22 15:30 IMPRESSION: Acute uncomplicated pancreatitis. Moderate esophagitis/gastritis. Gallbladder hydrops and intra-/extra-axial hepatic bile duct dilation, presumably related to inflammation from gastritis. 1.5 cm indeterminate right midpole solid or complicated cystic renal lesion, recommend outpatient MRI or CT without and with contrast for further evaluation. ADDENDUM: 12/20/22 2206 There is a 4.7 x 3.0 cm mixed density lesion in the left lower quadrant with fat and small solid elements, likely originating from the left ovary and likely representing a small mature teratom
[2022-12-22] MEDS: KETOROLAC 15 MG/ML VIAL (*BKC) IV PUSH (18:27)
[2022-12-22] MEDS: HYDROmorphone HCL INJ (*CRX) 1 MG/ML SYR 0.5 MG IV PUSH (23:14)
[2022-12-23] VITALS (12 sets, daily range): BP systolic 97–147; BP diastolic 62–86; PULSE 53–71; RESP 12–25; TEMP 35.8–36.8; O2SAT 96–100
[2022-12-23] MEDS: PIPERACILLN/TAZ 3.375GM/NS50ML 3.375 GM/50 ML BAG IVPB ×3 (00:01→17:14)
[2022-12-23 01:13] LABS: Glucose Point of Care 138 mg/dl (65-105)
[2022-12-23] MEDS: LACTATED RINGERS 1,000 ML 250 ML IV CONT ×2 (04:25→08:51)
[2022-12-23 05:41] LABS: Basophils Percent Auto 0.6 % (0.2-1.2); Eosinophils Absolute Auto 0.2 K/mm3 (0-0.3); Eosinophils Percent Auto 3.4 % (0-4.4); Hematocrit 32.5 % (37.0-47.0); Hemoglobin 10.6 g/dL (12.0-15.0); Immature Granulocyte Absolute 0.01 K/mm3 (0.00-0.031); Immature Granulocyte Percent A 0.2 % (0-0.5); Lymphocytes Absolute Auto 2.13 K/mm3 (0.9-3.2); Lymphocytes Percent Auto 39.7 % (18.3-44.2); Mean Corpuscular HGB Conc 32.6 g/dl (32-36); Mean Corpuscular Hemoglobin 29.5 pg (26-34); Mean Corpuscular Volume 90.5 fl (80-100); Mean Platelet Volume 10.7 fl (7.4-10.4); Monocytes Absolute Auto 0.5 K/mm3 (0.1-0.6); Monocytes Percent Auto 9.7 % (2.6-8.5); Neutrophils Absolute Auto 2.5 K/mm3 (1.3-6.7); Neutrophils Percent Auto 46.4 % (45.5-73.1); Platelet Count Result 184 k/mm3 (150-375); Red Blood Count 3.59 M/mm3 (4.2-5.4); Red Cell Distribution Width 11.9 % (11.5-14.5); White Blood Count 5.4 K/mm3 (4.5-10.0)
[2022-12-23 05:59] LABS: Alanine Aminotransferase 45 U/L (6-35); Albumin Level 3.1 g/dL (3.5-5.1); Alkaline Phosphatase 76 U/L (38-126); Anion Gap 1 mmol/L (8-16); Aspartate Amino Transferase 25 U/L (14-36); Bilirubin,Total 0.3 mg/dL (0.2-1.3); Blood Urea Nitrogen 11 mg/dL (7-17); Calcium 8.1 mg/dL (8.4-10.2); Carbon Dioxide 30 mmol/L (22-30); Chloride 107 mmol/L (98-107); Estimated CRCL calculation 89 ml/min; Estimated Glomerular Filt Rate > 60; Glucose 110 mg/dL (65-110); Lipase 745 U/L (23-300); Potassium 3.4 mmol/L (3.4-5.0); Sodium 138 mmol/L (137-145)
--- NOTE | 2022-12-23 06:11 | PC.NURSE ---
informed from GI lab that pt procedure to be done close to 1300 today
--- NOTE | 2022-12-23 08:42 | PM.PNGS ---
Progress Note: A&P Assessment and Plan (1) Cholelithiasis with choledocholithiasis: Code(s): K80.70 - Calculus of gallbladder and bile duct without cholecystitis without obstruction Status: Acute Assessment and Plan: Patient is doing well this morning. She is set to get an ERCP performed by Dr. Pierre today. Will follow-up on the results then we will discuss with the patient whether to proceed with a interval laparoscopic cholecystectomy during this hospitalization or discharge and bring her back as an outpatient for the surgery. Subjective Subjective Date/Time Seen: 12/23/22 08:42 Interval history: Patient feels well today. Minimal epigastric pain. She is NPO for ERCP today. LFTs are normal. Lipase has decreased to about 700. No fevers or chills vital signs are stable Review of Systems Review of Systems: The remainder of the review of systems to include constitutional, HEENT, cardiovascular, respiratory, GI, , integumentary, musculoskeletal, endocrine, immunologic, hematologic, psychiatric, and neurologic are all negative except for which is mentioned above in the HPI. Exam Const: General: comfortable and no acute distress Eyes: General: appearance normal, both eyes and all related structures Sclera: sclerae normal Pupils: Equal, round and reactive pupils present Neck: Neck: supple and no JVD Resp: Effort & Inspection: normal respiratory effort Auscultation: clear to auscultation bilaterally Cardio: Rate: regular rate Rhythm: regular rhythm GI: Other: Abdomen is soft and nondistended. Minimal tenderness to deep palpation in the epigastric region of the abdomen. No tenderness to palpation the right upper quadrant the abdomen with the gallbladder. Neuro: Speech: normal speech Motor exam (neuro): 5/5 motor strength present throughout Sensory Exam: normal sensation Extrem: General: normal to inspection Psych: Mental Status: mental status grossly normal Affect: normal affect Objective Data Vital Signs Vital Signs: Vital Signs - 24 hr 12/22/22 12:00 12/22/22 16:00 12/22/22 19:58 Temperature 36.4 C 36.6 C 36.6 C Pulse Rate 82 71 76 Respiratory Rate 17 18 17 Blood Pressure 118/66 123/81 106/57 L Pulse Oximetry 97 100 99 Oxygen Delivery 12/22/22 20:00 12/23/22 00:00 12/23/22 04:00 Temperature 36.3 C L 35.8 C L Pulse Rate 76 71 67 Respiratory Rate 17 17 17 Blood Pressure 131/77 134/76 Pulse Oximetry 99 96 100 Oxygen Delivery Room Air Intake/Output Intake/Output: Intake & Output 12/20/22 12/21/22 12/22/22 12/23/22 23:59 23:59 23:59 23:59 Intake Total 1000 4200 4920 1300 Balance 1000 4200 4920 1300 Meds/Results Medications: Active Medications Generic Name Dose Route Start Last Admin Trade Name Freq PRN Reason Stop Dose Admin Hydromorphone HCl 0.5 mg 12/20/22 16:18 12/22/22 23:14 Hydromorphone Hcl Inj (*Crx) 1 Mg/Ml Syr IV PUSH 0.5 mg Q4H PRN Administration Pain Rated 7-10 Piperacillin/Tazobactam/Dextrose 3.375 gm in 50 mls @ 100 mls/hr 12/20/22 23:00 12/23/22 05:38 Zosyn 3.375 Gm/Ns 50 Ml IVPB Infused Q6HR GIOVANY Infusion Lactated Ringer's 1,000 mls @ 250 mls/hr 12/20/22 16:20 12/23/22 04:25 Lr - Lactated Ringers Iv IV CONT 250 mls/hr .Q4H GIOVANY Administration Ketorolac Tromethamine 15 mg 12/21/22 14:46 12/22/22 18:27 Ketorolac 15 Mg/Ml Vial (*Bkc) IV PUSH 15 mg Q6H PRN Administration Pain Rated 4-6 Ondansetron HCl 4 mg 12/20/22 16:18 Ondansetron Inj 4 Mg/2 Ml Vial IV PUSH Q4H PRN Nausea Pantoprazole Sodium 40 mg 12/21/22 09:00 12/22/22 08:04 Pantoprazole Sodium Iv 40 Mg Vial IV PUSH 40 mg QAM GIOVANY Administration Radiology Results: ITS Impressions Abdomen/Pelvis CT 12/20/22 15:30 IMPRESSION: Acute uncomplicated pancreatitis. Moderate esophagitis/gastritis. Gallbladder hydrops and intra-/extra-axial hepatic bile duct dilation, pr
[2022-12-23] MEDS: PANTOPRAZOLE SODIUM IV 40 MG VIAL IV PUSH (08:53)
--- NOTE | 2022-12-23 11:49 | PC.NURSE ---
Pt went down to get an ERCP done at 1145.
[2022-12-23] MEDS: LACTATED RINGERS 1,000 ML 150 ML IV CONT (12:01)
--- NOTE | 2022-12-23 12:12 | WPDANESEPPF ---
Anes - Initial Pre Proc Eval Procedure: Operation Date: 12/23/22 13:00 Proposed Procedures p Endoscopic Retro Cholangiopancreatogram - Rajinder Pierre MD Date/Time: 12/23/22 12:12 Surgeon: Tito Schwartz MD Pre Op Diagnosis: acute pancreatitis,acute cholecysitits-suspected Patient Data Age: 52 Gender: F Height: 1.68 m Weight: 70 kg Last Vital Signs Temp 36.3 C L 12/23/22 11:58 Pulse 67 12/23/22 11:58 Resp 18 12/23/22 11:58 BP 147/83 H 12/23/22 11:58 Pulse Ox 100 12/23/22 11:58 O2 Del Method Room Air 12/23/22 11:58 FiO2 21 12/20/22 21:00 Allergies Allergy/AdvReac Type Severity Reaction Status Date / Time No Known Allergies Allergy Verified 12/23/22 11:58 Laboratory Tests 12/23/22 12/23/22 01:11 05:21 WBC 5.4 K/mm3 (4.5-10.0) RBC 3.59 L M/mm3 (4.2-5.4) Hgb 10.6 L g/dL (12.0-15.0) Hct 32.5 L % (37.0-47.0) MCV 90.5 fl (80-100) MCH 29.5 pg (26-34) MCHC 32.6 g/dl (32-36) RDW 11.9 % (11.5-14.5) Plt Count 184 k/mm3 (150-375) MPV 10.7 H fl (7.4-10.4) Immature Gran % (Auto) 0.2 % (0-0.5) Neut % (Auto) 46.4 % (45.5-73.1) Lymph % (Auto) 39.7 % (18.3-44.2) [place] % (Auto) 9.7 H % (2.6-8.5) Eos % (Auto) 3.4 % (0-4.4) Baso % (Auto) 0.6 % (0.2-1.2) Lymph # (Auto) 2.13 K/mm3 (0.9-3.2) [place] # (Auto) 0.5 K/mm3 (0.1-0.6) Eos # (Auto) 0.2 K/mm3 (0-0.3) Baso # (Auto) 0.0 K/mm3 (0.0-0.1) Abs Immat Gran (auto) 0.01 K/mm3 (0.00-0.031) Absolute Neuts (auto) 2.5 K/mm3 (1.3-6.7) Absolute Nucleated RBC 0.0 K/mm3 (0.0-0.012) Nucleated RBC % 0.0 % (0.0-0.2) Sodium 138 mmol/L (137-145) Potassium 3.4 mmol/L (3.4-5.0) Chloride 107 mmol/L (98-107) Carbon Dioxide 30 mmol/L (22-30) Anion Gap 1 L mmol/L (8-16) BUN 11 mg/dL (7-17) Creatinine 0.60 L mg/dL (0.7-1.0) Estim Creat Clear Calc 89 ml/min Estimated GFR > 60 (59 - ) Glucose 110 mg/dL (65-110) POC Capillary Glucose 138 H mg/dl (65-105) Calcium 8.1 L mg/dL (8.4-10.2) Total Bilirubin 0.3 mg/dL (0.2-1.3) AST 25 U/L (14-36) ALT 45 H U/L (6-35) Alkaline Phosphatase 76 U/L (38-126) Total Protein 6.0 L g/dL (6.3-8.2) Albumin 3.1 L g/dL (3.5-5.1) Lipase 745 H U/L (23-300) Patient hx anesthesia problems: none Family hx anesthesia problems: none Results Review: All pre-operative results and documents have been reviewed as part of the pre-operative evaluation. [facility] Surgical History Surgical History H/O tubal ligation Family History Family History Other Alcoholism Drug addiction Social History Social History Social History: The patient lives with her and she has 3 daughters and 1 daughter. She is not currently working. She denies alk 0 marijuana illicit drugs. the patient does occasionally smoke a cigarette. Code status full code Years smoked: 15 Smoking status: Current some day smoker Alcohol intake: former Substance use: never Lack of Transportation: No Lack of Food: Never True Current Housing: I Have Housing Concerned About Future Housing: No Difficulty Paying Gas/Electric Bills: No Difficulty Paying for Meds: No Currently Unemployed: No Education: Associate Degree Difficulty w/ Childcare or Family Care: No Spiritual care concerns: No Anes - Eval Final PreProcedure Day of Procedure 12/23/22 12:12 Patient weight: normal Heart: regular rate and rhythm Lungs: clear to auscultation Airway: Mallampati scale class II Neurological: alert and
[2022-12-23] MEDS: diphenhydrAMINE HCl INJ 50 MG/ML VIAL 25 MG IV PUSH (14:30)
--- NOTE | 2022-12-23 15:05 | SUR.PHASEII ---
1415 Pt arrives to recovery. Oral airway in place. Redness noted to left side of neck. Anesthesia at bedside notified. No new orders. 1430 Pt complains of nausea. New order received from Dr. Lopez for Benadryl for nausea.
--- NOTE | 2022-12-23 15:26 | SUR.PHASEII ---
Pt states she has some discomfort feels like she was punched in the upper abdomen . Dr. Pierre notified states to call him back in a couple hours if this continues. Will notify primary care RN Kiarra.
--- NOTE | 2022-12-23 15:40 | PC.NURSE ---
pt has returned to the floor after having a ERCP.
--- NOTE | 2022-12-23 16:42 | PM.DS ---
DS: Admitting Diagnosis Discharge Date 12/23/2022 Admitting Diagnosis Acute pancreatitis Cholecystitis DS: Discharge Diagnosis Discharge Diagnosis (1) Biliary acute pancreatitis: Qualifiers: Acute pancreatitis complication: unspecified Qualified Code(s): K85.10 - Biliary acute pancreatitis without necrosis or infection Code(s): K85.10 - Biliary acute pancreatitis without necrosis or infection Status: Acute Assessment and Plan: Resolved with fluids and bowel rest (2) Cholelithiasis with choledocholithiasis: Code(s): K80.70 - Calculus of gallbladder and bile duct without cholecystitis without obstruction Status: Acute Assessment and Plan: Stones identified on MRCP but not located during ERCP. Patient to pursue gallbladder removal as an outpatient, educated repeatedly on potential for recurrence. (3) Hepatic steatosis: Code(s): K76.0 - Fatty (change of) liver, not elsewhere classified Status: Acute Assessment and Plan: Stable with overall unremarkable LFTs (4) Dermoid cyst of left ovary: Code(s): D27.1 - Benign neoplasm of left ovary Status: Acute Assessment and Plan: Noncontributory and stable chronic finding. Instructed to follow with [employer] as an outpatient Plan Patient requesting discharge with outpatient follow-up with surgery for gallbladder removal. DS: Summary Hospital Course Reason for hospitalization: This is a 52-year-old female patient who was admitted to the hospital for acute pancreatitis with epigastric abdominal pain. Hospital Course: Patient had MRCP completed showing presence of obstructing gallstones in the common bile duct. She was treated with IV fluids and bowel rest as well as pain medication. Ketorolac seemed to work better than hydromorphone. On day 2 of hospital stay patient stated she can no longer handle being NPO status so a liquid diet was initiated which she tolerated, only needing a small amount of p.o. intake to see satiate her. The next morning she underwent ERCP the common bile duct was noted to be free of stones. Labs had also responded very nicely with lipase dropping from greater than 40,000 on admission to just over 400 after ERCP. Patient was offered the opportunity to stay in the hospital and have cholecystectomy completed but she stated that she needed to be discharged and she would follow up in the clinic for surgery as soon as possible. Went back to see the patient an additional time after procedure because of a return of abdominal pain not responsive to ketorolac and hydromorphone. Patient states that whenever she goes without food for a while she gets this severe pain that is only helped by eating. I spoke with the patient informing her that it is possible that this is a gallbladder spasm and she has additional gallstones present, that she would benefit from prompt cholecystectomy. She was treated with GI cocktail and felt significant near immediate improvement. Patient acknowledged that she still has gallstones, acknowledged that this pain may be related to gallbladder spasms, acknowledged that she could have additional stones released into bile duct causing obstruction and return of same symptoms, and acknowledged that she would benefit from gallbladder removal but still elected to be discharged and follow up in clinic to arrange cholecystectomy. Upon discharge patient was pain free and had stable vital signs and stable labs. Time spent discussing smoking cessation with patient: 3 to 10 minutes Status at Discharge Cognitive/behavioral status at discharge: awake, alert, oriented Functional status at discharge: independent ambulation Time Spent with Patient Time attestation: Total time spent providing and/or coordinating discharge services: Time spent: Greater than 30 minutes Exam Narrative: GENERAL: Generally well appearing, alert and oriented. She is pleasant and conversant in full sentence
[2022-12-23 17:22] LABS: Alanine Aminotransferase 55 U/L (6-35); Albumin Level 3.6 g/dL (3.5-5.1); Alkaline Phosphatase 92 U/L (38-126); Aspartate Amino Transferase 36 U/L (14-36); Bilirubin,Total 0.5 mg/dL (0.2-1.3); Blood Urea Nitrogen 10 mg/dL (7-17); Calcium 8.5 mg/dL (8.4-10.2); Carbon Dioxide 28 mmol/L (22-30); Chloride 106 mmol/L (98-107); Estimated CRCL calculation 89 ml/min; Estimated Glomerular Filt Rate > 60; Glucose 107 mg/dL (65-110); Lipase 458 U/L (23-300); Potassium 3.7 mmol/L (3.4-5.0)
[2022-12-23] MEDS: HYDROmorphone HCL INJ (*CRX) 1 MG/ML SYR 0.5 MG IV PUSH (17:23)
[2022-12-23 17:29] LABS: Anion Gap 2 mmol/L (8-16); Sodium 136 mmol/L (137-145)
[2022-12-23] MEDS: BELLADONNA ALK/PHENOB ELIX 10 ML, MAG HYDROX/ALUMINUM HYD/SIMETH 30 ML, LIDOCAINE HCL 2... PO (18:23)
== END 2022-12-23 19:40 | disposition home or self-care (01) | DRG 439 ==
LOC: ANHED 16:18 → ANHTRC 16:48 → ANH2MED 17:54
PROVIDERS: Internal Medicine; Internal Medicine Gastroenterology; Nurse Practitioner; Admitting Provider Family Medicine; Emergency Provider Emergency Medicine; Visit Provider Nurse Practitioner
PROC: 0F798ZZ Dilation of Common Bile Duct, Via Natural or Artificial Opening Endoscopic (ICD-10-PCS; CPT 43260; principal; 2022-12-23 13:00)
DX: K85.10 Biliary acute pancreatitis without necrosis or infection (principal); K80.71 Calculus of gallbladder and bile duct without cholecystitis with obstruction; K82.1 Hydrops of gallbladder; K76.0 Fatty (change of) liver, not elsewhere classified; K57.10 Diverticulosis of small intestine without perforation or abscess without bleeding; D27.1 Benign neoplasm of left ovary; F17.210 Nicotine dependence, cigarettes, uncomplicated
CPT/HCPCS: 36415; 74177; 74183; 74329; 76376; 76830; 80048; 80053; 81001; 81025; 82948; 83605; 83690; 83735; 84443; 85025; 96374; 96375; 99285; A9270; A9577; C9113; J0330; J1100; J1170; J1200; J1885; J2405; J2543; J2704; J7030; J7120; Q9966; Q9967

== ENCOUNTER 2022-12-30 09:01 | Outpatient (CLI) | payer OTHER, SELFPAY ==
--- NOTE | 2022-12-30 08:30 | ECG_ITS ---
Measurements Intervals [place] Rate: 76 P: 77 SD: 135 QRS: 70 QRSD: 83 T: 52 QT: 373 QTc: 420 Interpretive Statements SINUS RHYTHM BASELINE ARTIFACT- I, III, AVR, AVL NORMAL ECG NO PREVIOUS ECG AVAILABLE FOR COMPARISON Electronically Signed On 12-30-2022 9:30:31 CDT by Russell Melendez D.O.
[2022-12-30 09:41] LABS: Alanine Aminotransferase 88 U/L (6-35); Albumin Level 4.2 g/dL (3.5-5.1); Alkaline Phosphatase 101 U/L (38-126); Amylase 99 U/L (30-110); Aspartate Amino Transferase 22 U/L (14-36); Bilirubin,Total 0.3 mg/dL (0.2-1.3); Lipase 388 U/L (23-300)
== END 2022-12-30 09:02 | disposition home or self-care (01) ==
LOC: ANHSURGERY 09:06
PROVIDERS: PCP Family Medicine Sports Medicine; Visit Provider Surgery
DX: K81.9 Cholecystitis, unspecified (principal); Z01.818 Encounter for other preprocedural examination
CPT/HCPCS: 36415; 80076; 82150; 83690; 86850; 86900; 86901; 93005

== ENCOUNTER 2023-01-01 03:57 | Day surgery (SDC) | payer OTHER, SELFPAY ==
[2022-12-26 12:32] VITALS: BMI 24.3
--- NOTE | 2022-12-26 12:37 | PC.NURSE ---
Report to the Outpatient Waiting Room, entrance under the green pavilion located off [facility], at time 7:30 on date 01/01/23. Planned Procedure Time: 9:30. Time changes happen often and if your time is changed the preop area will call you the afternoon before. - You and your visitor will be asked to self-screen and do not enter if you have any COVID symptoms. - A mask is optional within the hospital at this time. Patients may have clear liquids (water, carbonated beverages, clear teas, apple juice) until 3 hours prior to surgery (6:30) with a maximum of 20 ounces. - No food from midnight until time of surgery Take the following medications with a SIP of water the morning of surgery: NONE DO NOT STOP ANY OF YOUR OTHER PRESCRIPTION MEDICATIONS PRIOR TO SURGERY ?EXCEPT THE FOLLOWING Medications to discontinue per physician: N/A Date to take last dose: N/A Please no make-up, nail colombian, hairspray, perfume, deodorant, or body powder the day of surgery. No jewelry (including any body piercings) or valuables the day of surgery, leave them at home. Please take a shower or bath the night before, or the morning of, surgery with an antibacterial soap. Wear comfortable, loose fitting clothing. - Jewelry must be removed prior to entering the operating room. Rings and piercings that are not removed may be cut off. - The hospital will not accept responsibility for valuables. - Please leave all valuables, including medications, at home the day of surgery. If you are going home after surgery, a licensed carrier driver must drive you home. - NO public transportation without another adult if you receive anesthesia. - We recommend that an adult stay with you for 24 hours following discharge. - We also recommend that you do not drive, make important decision, drink alcoholic beverages, or take any drugs that were not prescribed by your health care provider for at least 24 hours after your discharge time. Follow any additional instructions given to you from your surgeon. If you or anyone in your household have experienced Covid symptoms in the past week, please notify your surgeon or the nurse liaison at the phone number below for possible testing. Telephone instructions given to PT - NYDIA DANIELS and asked if any additional questions and then verbalized understanding. Patient advised to call surgeon office or pre surgery nurse liaison [phone] if any additional questions.
[2023-01-01] VITALS (12 sets, daily range): BP systolic 120–145; BP diastolic 74–84; PULSE 72–91; RESP 12–16; TEMP 36.2–36.7; O2SAT 98–100
[2023-01-01] MEDS: INDOCYANINE GREEN 25 MG VIAL WITH DILUENT 3.75 MG IV PUSH (08:10)
[2023-01-01] MEDS: LACTATED RINGERS 1,000 ML 30 ML IV CONT ×2 (08:10→10:38)
[2023-01-01] MEDS: ACETAMINOPHEN 500 MG TABLET 1000 MG PO (08:12)
[2023-01-01] MEDS: FAMOTIDINE 20 MG/2 ML VIAL IV PUSH (08:12)
[2023-01-01] MEDS: KETOROLAC 15 MG/ML VIAL (*BKC) IV PUSH (08:15)
--- NOTE | 2023-01-01 08:58 | P.PNAN_ITS ---
Anes - Initial Pre Proc Eval Procedure: Operation Date: 01/01/23 09:30 Proposed Procedures p Robotic Laparoscopic Cholecystectomy - Aliza Brothers MD Date/Time: 01/01/23 08:58 Surgeon: Aliza Brothers MD Pre Op Diagnosis: Cholelithiasis Patient Data Age: 52 Gender: F Height: 1.73 m Weight: 73 kg Allergies Allergy/AdvReac Type Severity Reaction Status Date / Time codeine Allergy Hives Verified 01/01/23 07:41 Home Medications Medication Instructions Recorded Confirmed Type pantoprazole 40 mg tablet,delayed 40 mg PO QAM 8 weeks #56 tabs 12/23/22 12/26/22 Rx release Patient hx anesthesia problems: none Family hx anesthesia problems: none Results Review: All pre-operative results and documents have been reviewed as part of the pre- operative evaluation. [facility] Surgical History Surgical History H/O tubal ligation Family History Family History Other Alcoholism Drug addiction Social History Social History Social History: The patient lives with her and she has 3 daughters and 1 daughter. She is not currently working. She denies alk 0 marijuana illicit drugs. the patient does occasionally smoke a cigarette. Code status full code Smoking packs per day: 0.5 Smoking cigarettes per day: 10.0 Years smoked: 20 Smoking pack-years: 10.00 Smoking status: Current every day smoker Tobacco type: cigarettes Alcohol intake: never Substance use: never Substance use type: does not use Lack of Transportation: No Lack of Food: Never True Current Housing: I Have Housing Concerned About Future Housing: No Difficulty Paying Gas/Electric Bills: No Difficulty Paying for Meds: No Currently Unemployed: No Education: Associate Degree Difficulty w/ Childcare or Family Care: No Living arrangements: with family Spiritual care concerns: No Comments poor mouth opening use glidescope Anes - Eval Final PreProcedure Day of Procedure 01/01/23 08:58 Patient weight: normal Heart: regular rate and rhythm Lungs: decreased breath sounds Airway: Mallampati scale class IV Neurological: alert and oriented Last oral intake: >/= 8 hours ASA classification: II Emergent: no Anesthetic plan: proceed Anesthesia type and monitoring: general ETT and standard monitoring Results Review: All pre-operative results and documents have been reviewed as part of the pre- operative evaluation. Informed Consent: The patient's anesthetic plan and its attendant risks and benefits were discussed with the patient/family/POA. Questions were solicited and answers provided to the satisfaction of the patient/family/POA.
--- NOTE | 2023-01-01 09:18 | WPDHPUPDATE1 ---
History and Physical Update Update Date/Time: 01/01/23 09:18 History and Physical has been reviewed, including an updated exam of the patient. There are NO changes in the patient's condition. Risks, benefits, and alternatives have been discussed and questions answered. Patient agrees to proceed with procedure. pt is setup for interval robotic assisted cholecystectomy
[2023-01-01] MEDS: ceFAZolin 2 GM/D5W 50 ML 2 GM/50 ML BAG IVPB (09:36)
[2023-01-01] MEDS: BUPIVACAINE/EPINEPHRINE 0.5% 50 ML VIAL 30 ML INFILTRATE (10:07)
--- NOTE | 2023-01-01 10:29 | W.PM.PROC2 ---
Procedure Note - Detailed Date of Procedure 01/01/23 Pre-op Diagnosis Acute biliary pancreatitis Post-op Diagnosis Same Procedure Performed Robotic assisted cholecystectomy Surgeon Aliza Brothers MD Anesthesia General Indications 52-year-old female presenting initially with acute biliary pancreatitis, choledocholithiasis. Patient is status post ERCP with stone retrieval. Patient now here for interval cholecystectomy. Findings moderate cholecystitis, cholelithiasis Description of Procedure The patient was taken to the operating room and placed in the supine position. After adequate induction of general anesthesia, the patient was prepped and draped in the normal sterile fashion. A time-out was then done to verify the patient's identity, as well as the procedure being performed. I began by making a 8 mm incision in the periumbilical region. A Veress needle was then placed in the peritoneal cavity and CO2 gas was insufflated. After adequate pneumoperitoneum was achieved, the Veress needle was removed and a 8 mm Optiview trocar was placed under direct visualization. Once into the abdominal cavity, the introducer was removed and the laparoscope was placed through this trocar site. Under direct visualization, I placed a further 8 mm port in the left mid abdomen and 2 additional 8 mm ports in the right mid abdomen. The robot was then docked to these ports sites. I then went to the console. The gallbladder was then identified and noted to be moderately inflamed with noted small gallstones. I was able to place a grasper at the dome of the gallbladder and this was retracted up and over the liver. A 2nd retractor was used to grasp the infundibulum and retracted laterally. This allowed visualization and dissection of the triangle of Calot. There were some omental adhesions to the gallbladder and these were taken down with the cautery. I then began dissection around the triangle Calot. I first identified the cystic duct, I was able to visualize the entirety of the duct from its proximal insertion into the gallbladder to its distal junction with the common hepatic/common bile duct junction. I then used the firefly visualization at this point to confirm the anatomy. The proximal cystic duct was then further skeletonized, clipped, and transected. Next I visualized the cystic artery. Again the structure was skeletonized, clipped, and transected. I then again used firefly to confirm anatomy and no aberrant anatomy was noted. I then used the Bovie cautery to take down the peritoneal attachments of the gallbladder off the liver bed. Once the gallbladder specimen was completely detached, an Endo pouch was placed through the left 8 mm port site and the gallbladder specimen was placed in the endo-pouch and subsequently removed. Of note, I made a cholecystostomy and decompressed the gallbladder to facilitate removal. I then re-examined the right upper quadrant. Hemostasis was noted in the liver bed and the clips were noted to be in good position on both the duct and the artery. No other pathology was seen in the right upper quadrant. All instruments were then removed and the robot was undocked. The abdomen was then desufflated and all ports were removed. All port sites were then closed with 4-0 Monocryl subcuticular suture. Dermabond was placed on each was wound. The patient tolerated the procedure well and was extubated in the operating room postop. The patient will now be transferred to the recovery room in stable condition. Estimated Blood Loss 10 Drains No Packing No Pathology Yes Complications No immediate complications Condition Stable Disposition PACU [facility] Billing Surgery - Charge Forward: Surgery Billing
[2023-01-01] MEDS: fentaNYL CITRATE INJ (*CRX) 100 MCG/2 ML VIAL 25 MCG IV PUSH ×8 (11:11→12:08)
[2023-01-01] MEDS: traMADol HCL (*CRX) 50 MG TABLET PO (12:49)
== END 2023-01-01 13:29 | disposition home or self-care (01) ==
PROVIDERS: PCP Family Medicine Sports Medicine; Visit Provider Surgery
PROC: 0FT44ZZ Resection of Gallbladder, Percutaneous Endoscopic Approach (ICD-10-PCS; CPT 47562; principal; 2023-01-01 09:30)
DX: K80.10 Calculus of gallbladder with chronic cholecystitis without obstruction (principal); K85.10 Biliary acute pancreatitis without necrosis or infection; F17.210 Nicotine dependence, cigarettes, uncomplicated
CPT/HCPCS: 47562; S2900; 36415; 80076; 82150; 83690; 86850; 86900; 86901; 88304; 93005; A9270; J0330; J0690; J1100; J1885; J2250; J2405; J2704; J2710; J3010; J7030; J7120

== ENCOUNTER 2023-01-07 21:28 | Emergency (ER) | payer SELFPAY ==
[2023-01-07 21:36] VITALS: BP 121/95; PULSE 109; RESP 21; TEMP 36.8; O2SAT 99
[2023-01-07 21:45] LABS: Basophils Absolute Auto 0.1 K/mm3 (0.0-0.1); Basophils Percent Auto 0.8 % (0.2-1.2); Eosinophils Absolute Auto 0.2 K/mm3 (0-0.3); Eosinophils Percent Auto 1.8 % (0-4.4); Hematocrit 47.9 % (37.0-47.0); Hemoglobin 15.7 g/dL (12.0-15.0); Immature Granulocyte Absolute 0.02 K/mm3 (0.00-0.031); Immature Granulocyte Percent A 0.2 % (0-0.5); Lymphocytes Absolute Auto 4.81 K/mm3 (0.9-3.2); Lymphocytes Percent Auto 44.6 % (18.3-44.2); Mean Corpuscular HGB Conc 32.8 g/dl (32-36); Mean Corpuscular Hemoglobin 29.1 pg (26-34); Mean Corpuscular Volume 88.7 fl (80-100); Monocytes Absolute Auto 0.8 K/mm3 (0.1-0.6); Monocytes Percent Auto 7.1 % (2.6-8.5); Neutrophils Absolute Auto 4.9 K/mm3 (1.3-6.7); Neutrophils Percent Auto 45.5 % (45.5-73.1); Platelet Count Result 385 k/mm3 (150-375); White Blood Count 10.8 K/mm3 (4.5-10.0)
--- NOTE | 2023-01-07 22:00 | PC.NURSE ---
Patient states im in too much pain and im not waiting and had wheel her out in wheelchair.
[2023-01-07 22:03] LABS: Alanine Aminotransferase 60 U/L (6-35); Albumin Level 4.8 g/dL (3.5-5.1); Alkaline Phosphatase 151 U/L (38-126); Anion Gap 17 mmol/L (8-16); Aspartate Amino Transferase 74 U/L (14-36); Bilirubin,Total 0.7 mg/dL (0.2-1.3); Blood Urea Nitrogen 25 mg/dL (7-17); Calcium 9.7 mg/dL (8.4-10.2); Carbon Dioxide 25 mmol/L (22-30); Chloride 97 mmol/L (98-107); Estimated CRCL calculation 84 ml/min; Estimated Glomerular Filt Rate > 60; Glucose 138 mg/dL (65-110); Lipase 97 U/L (23-300); Potassium 3.7 mmol/L (3.4-5.0); Sodium 139 mmol/L (137-145)
[2023-01-07 22:18] LABS: Appearance Urine Turbid (Clear); Bacteria Urine 2+ /hpf; Bilirubin Urine Negative (Negative); Blood Urine 2+ (Negative); Color Urine Yellow (Yellow); Glucose Urine UA Negative (Negative); Hyaline Casts Urine Present /lpf; Ketones Urine Negative (Negative); Leukocyte Esterase Ur 3+ LEU/UL (Negative); Nitrate Urine Negative (Negative); Protein Urine 2+ mg/dL (Negative); RBC Urine 21-50 /hpf (0-2); Specific Grav Ur 1.016 (1.001-1.035); Squamous Epithelial Cell Urine Few /hpf (Few); WBC Urine >100 /hpf; pH Urine 8.5 (5.0-9.0)
[2023-01-07 22:20] LABS: Add Urine Microscopic? YES
== END 2023-01-07 22:02 | disposition left against medical advice (07) ==
PROVIDERS: Emergency Provider Preventive Medicine Aerospace Medicine
DX: R10.9 Unspecified abdominal pain (principal)
CPT/HCPCS: 36415; 80053; 81001; 83690; 85025; 87086; 87088; 99199

== ENCOUNTER → 2023-01-16 13:07 | Outpatient (CLI) | payer OTHER, SELFPAY ==
--- NOTE | ~2023-01-16 | CT_ITS ---
CT of the Abdomen: Indication: Abdominal pain Technique: 2.5 mm axial scans were obtained through the abdomen following intravenous administration of 100 cc of Omnipaque 350. Dose reduction technique was used on this scan by utilizing automated ex posure control and iterative reconstruction technique. The dose-length product (DLP) was 234.41 mGy-c m. COMPARISON: 12/20/2022 Findings: Scans through the lung bases are unremarkable. There is intrahepatic and extrahepatic biliary dilatation. Common bile duct measures up to 14 mm in d iameter. Patient is status post cholecystectomy. The spleen, pancreas, gallbladder, adrenals and kidn eys are within normal limits. No evidence of aortic aneurysm. No lymphadenopathy. Visualized bowel loops are unremarkable. No ascites. Impression: Intrahepatic and extrahepatic biliary dilatation, possibly related to prior cholecystectomy. Distal C BD stricture is a potential consideration. No obstructing mass lesion identified. No acute inflammatory change identified. Reviewed, dictated and finalized at [facility]. Impression: Intrahepatic and extrahepatic biliary dilatation, possibly related to prior cho lecystectomy. Distal CBD stricture is a potential consideration. No obstructing mass lesion identified. No acute inflammatory change identified.
== END ==
PROVIDERS: PCP Family Medicine Sports Medicine; Visit Provider Surgery
DX: R10.9 Unspecified abdominal pain (principal)
CPT/HCPCS: 74160; Q9967

== ENCOUNTER 2023-01-21 11:08 | Observation (INO) | payer OTHER, SELFPAY ==
[2023-01-21] VITALS (37 sets, daily range): BP systolic 106–158; BP diastolic 54–96; PULSE 60–94; RESP 11–23; TEMP 35.9–36.8; O2SAT 98–100; BMI 24.8
--- NOTE | ~2023-01-21 | CT_ITS ---
EXAMINATION: CT abdomen pelvis w con DATE: 01/21/2023 12:34 INDICATION: Epigastric abdominal pain. TECHNIQUE: Computed tomography (CT) of the abdomen and pelvis was performed with 100 mL Omnipaque 350 intravenous contrast. Automated exposure control and iterative reconstruction technique were employe d. The dose-length product was 325.33 mGy-cm. COMPARISON: CT abdomen 01/16/2023, [facility]CP 12/21/2022 FINDINGS: The visualized portions of the lung bases demonstrate mild atelectasis. No pleural effusion . The heart size is normal. No pericardial effusion. There is a 2.0 cm cyst in the liver. Calcificati ons in the spleen are consistent with old granulomatous disease. There are changes of cholecystectomy . The pancreas and adrenal glands are normal. There are cysts in the kidneys measuring up to 9 mm on the right. There is a 4.4 cm mass containing fat in left ovary, consistent with a dermoid. There are no dilated loops of bowel. The appendix is normal. There is subcutaneous fat stranding in anterior ab dominal wall, consistent with inflammation from recent surgery. There are no pathologically enlarged lymph nodes. There is no ascites. There is mild aortic atherosclerosis. There are small sclerotic les ions in the pelvis and proximal femora, probably benign. IMPRESSION: 1. 4.4 cm left ovarian dermoid. Reviewed, dictated and finalized at location A.
[2023-01-21 11:31] LABS: Basophils Absolute Auto 0.1 K/mm3 (0.0-0.1); Basophils Percent Auto 1.3 % (0.2-1.2); Eosinophils Absolute Auto 0.2 K/mm3 (0-0.3); Eosinophils Percent Auto 3.5 % (0-4.4); Hematocrit 42.4 % (37.0-47.0); Hemoglobin 13.7 g/dL (12.0-15.0); Immature Granulocyte Absolute 0.01 K/mm3 (0.00-0.031); Immature Granulocyte Percent A 0.1 % (0-0.5); Lymphocytes Absolute Auto 2.53 K/mm3 (0.9-3.2); Lymphocytes Percent Auto 36.9 % (18.3-44.2); Mean Corpuscular HGB Conc 32.3 g/dl (32-36); Mean Corpuscular Hemoglobin 29.6 pg (26-34); Mean Corpuscular Volume 91.6 fl (80-100); Mean Platelet Volume 10.3 fl (7.4-10.4); Monocytes Absolute Auto 0.6 K/mm3 (0.1-0.6); Monocytes Percent Auto 8.6 % (2.6-8.5); Neutrophils Absolute Auto 3.4 K/mm3 (1.3-6.7); Neutrophils Percent Auto 49.6 % (45.5-73.1); Platelet Count Result 244 k/mm3 (150-375); Red Blood Count 4.63 M/mm3 (4.2-5.4); Red Cell Distribution Width 12.4 % (11.5-14.5); White Blood Count 6.9 K/mm3 (4.5-10.0)
[2023-01-21 11:41] LABS: Alanine Aminotransferase 484 U/L (6-35); Albumin Level 4.5 g/dL (3.5-5.1); Alkaline Phosphatase 270 U/L (38-126); Anion Gap 10 mmol/L (8-16); Aspartate Amino Transferase 340 U/L (14-36); Bilirubin,Total 0.7 mg/dL (0.2-1.3); Blood Urea Nitrogen 27 mg/dL (7-17); Calcium 9.4 mg/dL (8.4-10.2); Carbon Dioxide 27 mmol/L (22-30); Chloride 103 mmol/L (98-107); Estimated CRCL calculation 74 ml/min; Estimated Glomerular Filt Rate > 60; Glucose 114 mg/dL (65-110); Lipase 153 U/L (23-300); Potassium 3.9 mmol/L (3.4-5.0); Sodium 140 mmol/L (137-145)
[2023-01-21 11:48] LABS: Appearance Urine Clear (Clear); Bacteria Urine None Seen /hpf; Bilirubin Urine Negative (Negative); Blood Urine 1+ (Negative); Color Urine Yellow (Yellow); Glucose Urine UA Negative (Negative); Ketones Urine Negative (Negative); Leukocyte Esterase Ur 3+ LEU/UL (Negative); Nitrate Urine Negative (Negative); Non Pathogenic Casts 0-2; Protein Urine Negative (Negative); RBC Urine 0-2 /hpf (0-2); Specific Grav Ur 1.014 (1.001-1.035); Squamous Epithelial Cell Urine Occasional /hpf (Few); WBC Urine 21-50 /hpf; pH Urine 5.5 (5.0-9.0)
[2023-01-21 11:49] LABS: Add Urine Microscopic? YES
--- NOTE | 2023-01-21 12:19 | ED.ABDPAIN ---
HPI - Abdominal Pain General Chief Complaint: Abdominal Pain Stated Complaint: abd pain Time Seen by Provider: 01/21/23 12:04 History of Present Illness HPI narrative: Patient is a 52-year-old female with history of recent laparoscopic cholecystectomy presenting with severe abdominal pain. Patient states that she had her gallbladder out 3 weeks ago. Since that time she has had severe intermittent epigastric pain. States that it is worse with eating and when she feels hungry. Reports nausea but no vomiting. No constipation or diarrhea. No hematemesis, hematochezia, or melena. No dysuria or hematuria. Patient had a follow-up appointment with her surgeon today who advised that she come to the ER for urgent workup and likely GI evaluation. Related Data Home Medications Medication Instructions Recorded Confirmed Acid Pile Driver Operator Barge Mounted (omeprazole) 20 mg PO BID PRN Heartburn 01/21/23 01/21/23 Allergies Allergy/AdvReac Type Severity Reaction Status Date / Time codeine Allergy Hives Verified 01/21/23 16:45 Review of Systems Review of Systems: All systems reviewed & are unremarkable except as noted in HPI and below PMFSH Past Medical History Medical History (Updated 01/21/23 @ 22:05 by Jazmín Savage PA-C) Anxiety Gallstone pancreatitis (~12/2022) Gastroesophageal reflux disease Surgical History Surgical History (Updated 01/21/23 @ 22:03 by Jazmín Savage PA-C) History of cholecystectomy (01/01/23) History of endometrial ablation History of endoscopic retrograde cholangiopancreatography History of tubal ligation Family History Family History Father Alcoholism Mother Alcoholism Sibling Drug addiction Social History Social History (Updated 01/21/23 @ 22:04 by Jazmín Savage PA-C) Social History: Surrogate medical decision maker: Hammad Ross, spouse. Code status: Full code. Smoking packs per day: 0.2 Smoking cigarettes per day: 4.0 Years smoked: 20 Smoking pack-years: 4.00 Smoking status: Current every day smoker Tobacco type: cigarettes Alcohol intake: never Substance use: never Substance use type: does not use Lack of Transportation: No Lack of Food: Never True Current Housing: I Have Housing Concerned About Future Housing: No Difficulty Paying Gas/Electric Bills: No Difficulty Paying for Meds: No Currently Unemployed: No Education: Associate Degree Difficulty w/ Childcare or Family Care: No Living arrangements: with family Additional living arrangements comments: Lives with spouse. She has 3 children. Spiritual care concerns: No Exam Narrative: GENERAL: Tearful and distressed secondary to pain, pleasant and cooperative HEAD: Normocephalic, atraumatic. EYES: PERRLA and EOMI. ENT: Nares clear, no rhinorrhea or epistaxis. Mucous membranes moist. NECK: Supple. CHEST: Clear to auscultation. No respiratory distress. HEART: Regular rate and rhythm ABDOMEN: Soft, tender especially in epigastrium but also left upper and right upper quadrants, no guarding or rebound EXTREMITIES: Normal range of motion. No edema. SKIN: Warm, dry, no rash. NEURO: No focal deficits. Alert and oriented x3. PSYCH: Normal mood and affect. Course Vital Signs Vital signs: Vital Signs Temperature 97.6 F 01/21/23 11:10 Pulse Rate 94 01/21/23 11:10 Respiratory Rate 20 01/21/23 11:10 Blood Pressure 158/92 H 01/21/23 11:10 Pulse Oximetry 99 01/21/23 11:10 Oxygen Delivery Room Air 01/21/23 11:10 Temperature 96.7 F L 01/22/23 06:00 Pulse Rate 68 01/22/23 06:00 Respiratory Rate 14 01/22/23 06:00 Blood Pressure 99/61 L 01/22/23 06:00 Pulse Oximetry 99 01/22/23 06:00 Oxygen Delivery Room Air 01/22/23 08:25 MDM - Abdominal Pain MDM Narrative Medical decision making narrative: Patient is a 52-year-old female presenting with severe abdominal pain in the sett
--- NOTE | 2023-01-21 12:34 | PC.NURSE ---
Patient off unit CT.
[2023-01-21] MEDS: PANTOPRAZOLE SODIUM IV 40 MG VIAL IV PUSH ×2 (12:53→22:55)
[2023-01-21] MEDS: ONDANSETRON INJ 4 MG/2 ML VIAL IV PUSH (12:53)
[2023-01-21] MEDS: LACTATED RINGERS 1,000 ML 999 ML IV CONT (12:53)
[2023-01-21] MEDS: HYDROmorphone HCL INJ (*CRX) 1 MG/ML SYR 0.5 MG IV PUSH ×2 (12:54→22:04)
[2023-01-21 13:50] LABS: Prothrombin Time 13.6 Seconds (11.1-14.7)
--- NOTE | 2023-01-21 15:58 | PM.IMHP ---
H&P: HPI History of Present Illness Date/Time: 01/21/23 15:15 Chief Complaint: Abdominal pain. Narrative: This is a pleasant 52-year-old female smoker with history of gastroesophageal reflux disease and peptic ulcer who presented to the emergency department via private vehicle for evaluation of abdominal pain. The patient provides the following history. She reports intermittent episodes of epigastric pain over the last several months. Her symptoms became more frequent in the last month and she in fact she was admitted to the hospital at the beginning of December with biliary pancreatitis. Her symptoms improved with bowel rest and supportive treatment. ERCP was normal and without evidence of choledocholithiasis. She had an outpatient robotic assisted cholecystectomy per Dr. Brothers on January 01 and she saw him today in follow-up. Unfortunately she continues to have frequent, daily epigastric pain that she describes as ?punching? in nature. It seems to be worse with eating acidic foods and with increasing stress. Antacids do not helped much. The pain seems to be worse when she is hungry. She has abdominal bloating and early satiety. She has lost about 10 lb since her hospitalization last month. Stools have been normal and she denies vomiting however she induced emesis a couple of weeks ago which did not help. She denies fever, chills, sweats, hematemesis, melena, and hematochezia. She has not had caffeine or alcohol for months due to the pain. Denies NSAID use. Preliminary workup in the ED showed elevated LFTs with an AST of 340, ALT 44, alk phos disease to 70, total bilirubin 0.7, lipase 153. CT of the abdomen and pelvis did not show any acute findings but did note a 4.4 cm left ovarian dermoid which was noted on previous imaging. Review of Systems Review of Systems: Twelve systems were reviewed and are negative except for as per HPI. [facility] Past Medical History Medical History (Updated 01/21/23 @ 22:05 by Jazmín Savage PA-C) Anxiety Gallstone pancreatitis (~12/2022) Gastroesophageal reflux disease Surgical History Surgical History (Updated 01/21/23 @ 22:03 by Jazmín Savage PA-C) History of cholecystectomy (01/01/23) History of endometrial ablation History of endoscopic retrograde cholangiopancreatography History of tubal ligation Family History Family History Father Alcoholism Mother Alcoholism Sibling Drug addiction Social History Social History (Updated 01/21/23 @ 22:04 by Jazmín Savage PA-C) Social History: Surrogate medical decision maker: Hammad Delaneymons, spouse. Code status: Full code. Smoking packs per day: 0.2 Smoking cigarettes per day: 4.0 Years smoked: 20 Smoking pack-years: 4.00 Smoking status: Current every day smoker Tobacco type: cigarettes Alcohol intake: never Substance use: never Substance use type: does not use Lack of Transportation: No Lack of Food: Never True Current Housing: I Have Housing Concerned About Future Housing: No Difficulty Paying Gas/Electric Bills: No Difficulty Paying for Meds: No Currently Unemployed: No Education: Associate Degree Difficulty w/ Childcare or Family Care: No Living arrangements: with family Additional living arrangements comments: Lives with spouse. She has 3 children. Spiritual care concerns: No Meds Home Medications and Allergies Home Medications Medication Instructions Recorded Confirmed Type pantoprazole 40 mg tablet,delayed 40 mg PO QAM 8 weeks #56 tabs 12/23/22 01/21/23 Rx release Acid Display Maker (omeprazole) 20 mg PO BID PRN Heartburn 01/21/23 01/21/23 History Allergies Allergy/AdvReac Type Severity Reaction Status Date / Time codeine Allergy Hives Verified 01/21/23 16:45 Vital Signs Vital Signs - 24 hr 01/21/23 11:10 01/21/23 11:13 01/21/23 11:14 Temperature 97.6 F Pulse Rate 94 91 87 Respiratory Rate 20 1
--- NOTE | 2023-01-21 16:25 | ADMGEN ---
This patient, Consuelo Ross, was admitted to [facility] Surg Room 325-02. Patient/family oriented to hospital policies and general routines including ID bracelet, bed and alarms, visiting hours, pain management, procedures, bathroom and other care routines, personal items, smoking policy, room service/diet, and visiting hours. Information on how to activate the Rapid Response Team has been discussed. Patient/Family are encouraged to report perceived risks to care and to ask questions if they do not understand what they are told or what they should do.
[2023-01-21] MEDS: LACTATED RINGERS 1,000 ML 100 ML IV CONT (22:45)
[2023-01-22 06:00] VITALS: BP 99/61; PULSE 68; RESP 14; TEMP 35.9; O2SAT 99
[2023-01-22 06:16] LABS: Hematocrit 39.2 % (37.0-47.0); Hemoglobin 12.5 g/dL (12.0-15.0); Mean Corpuscular HGB Conc 31.9 g/dl (32-36); Mean Corpuscular Hemoglobin 28.9 pg (26-34); Mean Corpuscular Volume 90.7 fl (80-100); Mean Platelet Volume 10.5 fl (7.4-10.4); Platelet Count Result 224 k/mm3 (150-375); Red Blood Count 4.32 M/mm3 (4.2-5.4); Red Cell Distribution Width 12.2 % (11.5-14.5)
[2023-01-22 06:34] LABS: Alanine Aminotransferase 401 U/L (6-35); Albumin Level 3.5 g/dL (3.5-5.1); Alkaline Phosphatase 212 U/L (38-126); Anion Gap 3 mmol/L (8-16); Aspartate Amino Transferase 149 U/L (14-36); Bilirubin,Total 0.2 mg/dL (0.2-1.3); Blood Urea Nitrogen 21 mg/dL (7-17); Calcium 8.8 mg/dL (8.4-10.2); Carbon Dioxide 29 mmol/L (22-30); Chloride 104 mmol/L (98-107); Estimated CRCL calculation 84 ml/min; Estimated Glomerular Filt Rate > 60; Glucose 101 mg/dL (65-110); Lipase 149 U/L (23-300); Magnesium 1.8 mg/dL (1.6-2.3); Potassium 3.9 mmol/L (3.4-5.0); Sodium 136 mmol/L (137-145)
[2023-01-22 07:05] LABS: Hepatitis B Surface Antigen Negative (Negative)
[2023-01-22 07:12] LABS: HAV RESULT Negative (Negative); Hepatitis B Core IgM Result Negative (Negative)
[2023-01-22 07:23] LABS: Hepatitis C Virus Antibody Negative (Negative)
[2023-01-22] MEDS: PANTOPRAZOLE SODIUM IV 40 MG VIAL IV PUSH (08:52)
--- NOTE | 2023-01-22 10:56 | PC.NURSE ---
pt states she is leaving AMA. hospitalist informed at 1045. Left voicemail with specialist at 1055. pt was educated on risks of leaving AMA. Pt was told to go to the nearest ED if she has worsening symptoms. IV was removed, pt signed AMA form and left at 1100.
--- NOTE | 2023-01-30 12:33 | P.DS_ITS ---
DS: Admitting Diagnosis Discharge Date 01/22/23 Admitting Diagnosis Abdominal pain DS: Discharge Diagnosis Discharge Diagnosis (1) Epigastric pain: Code(s): R10.13 - Epigastric pain Status: Acute DS: Summary Hospital Course Hospital Course: Patient admitted with abdominal pain. Left AMA Time Spent with Patient Time attestation: Total time spent providing and/or coordinating discharge services: Discharge Plan Discharge Consulting providers: Kasi Bryan V.; Jazmín Savage Patient Disposition: Left Against Medical Advice Discharge Medications: No Action Acid Slitter And Cutter Operator (omeprazole) 20 mg PO BID PRN (Reason: Heartburn) pantoprazole 40 mg tablet,delayed release (DR/EC) 40 mg PO QAM 56 Days Qty: 56 0RF Date of admission: 01/21/23 15:09 Primary Care Provider: Alisia,Samson Albarran Admitting Provider: Tevin Tyson Attending physician on admission: Tevin Tyson Condition: Stable
== END 2023-01-22 11:00 | disposition left against medical advice (07) ==
LOC: ANHED 12:04 → ANH3MEDSUR 16:03
PROVIDERS: Emergency Medicine; Physician Assistant; Admitting Provider Hospitalist; Emergency Provider Emergency Medicine; PCP Family Medicine Sports Medicine; Visit Provider Hospitalist
DX: R10.13 Epigastric pain (principal); R74.01 Elevation of levels of liver transaminase levels; D27.1 Benign neoplasm of left ovary; K21.9 Gastro-esophageal reflux disease without esophagitis; Z90.49 Acquired absence of other specified parts of digestive tract; F17.210 Nicotine dependence, cigarettes, uncomplicated; Z87.11 Personal history of peptic ulcer disease
CPT/HCPCS: 36415; 74177; 80053; 80074; 81001; 81025; 83690; 83735; 85025; 85027; 85610; 85730; 87086; 87088; 96361; 96374; 96375; 96376; 99285; C9113; G0378; J1170; J2405; J7120; Q9967

== ENCOUNTER 2023-04-19 02:29 | Emergency (ER) | payer OTHER, SELFPAY ==
--- NOTE | 2023-04-19 02:30 | ECG_ITS ---
Measurements Intervals [place] Rate: 103 P: 74 SC: 122 QRS: 70 QRSD: 82 T: 46 QT: 322 QTc: 423 Interpretive Statements SINUS TACHYCARDIA NONSPECIFIC ST & T-WAVE ABNORMALITY- ANTEROLAT/INF LEADS BORDERLINE ECG COMPARED TO ECG 12/30/2022 09:23:[address] NOW PRESENT [address]-T WAVE ABNORMALITY NOW PRESENT Electronically Signed On 04-19-2023 6:57:24 TELESALES ADVISOR by Russell Melendez D.O.
[2023-04-19 02:37] VITALS: BP 117/75; PULSE 112; RESP 15; TEMP 36.4; O2SAT 100
--- NOTE | 2023-04-19 02:56 | PC.NURSE ---
pt. to front office java developer asking RN how long the wait time is. RN educated pt. that a wait time cannot be given. pt. stated I can't wait, I'm leaving. Pt. NAD upon departure.
== END 2023-04-19 03:09 | disposition left against medical advice (07) ==
PROVIDERS: Emergency Provider Student in an Organized Health Care Education/Training Program; PCP Family Medicine Sports Medicine
DX: U07.1 COVID-19 (principal)
CPT/HCPCS: 93005; 99199